=== PATIENT | male | born 1980 | race Caucasian/White ===

== ENCOUNTER 2017-01-13 06:54 | Inpatient (IN) | payer MEDICAID ==
[~2017-01-13] VITALS: Ht 160 cm; Wt 72.7 kg
[~2017-01-13 06:54] MED LIST: ASEN10TA8 SL; ASPI-1182 PO; DOCU250C91 PO; LISI-660 PO; METF500T4 PO; SIMV-261 PO; Trazodone Hcl PO
[2017-01-13] MEDS ORDERED: ZOLPIDEM TARTRATE 10 MG TABLET PO PRN (08:45)
[2017-01-13 09:10] VITALS: BP 102/65
[2017-01-13 09:55] LABS: GLUCOSE COMMENT 1 Doctor Notified; GLUCOSE,POINT OF CARE 351 MG/DL (70-110)
[2017-01-13] MEDS ORDERED: INSULIN ASPART 100 UNITS/ML SQ ONE (10:00)
[2017-01-13 10:53] VITALS: BP 121/54
[2017-01-13] MEDS ORDERED: INFLUENZA VIRUS VACCINE QVS 2017-18 (3YR+)/PF 60 MCG/0.5 ML SYRINGE IM ONE (11:00)
[2017-01-13] MEDS ORDERED: PNEUMOCOCCAL VACCINE POLYVALENT 0.5 ML VIAL [PPSV23] IM ONE (11:00)
[2017-01-13 11:20] LABS: GLUCOSE COMMENT 1 Doctor Notified; GLUCOSE COMMENT 2 Repeated; GLUCOSE,POINT OF CARE 280 MG/DL (70-110)
[2017-01-13] MEDS: DOCUSATE SODIUM 250 MG CAPSULE PO SCH (17:00)
[2017-01-13] MEDS: MetFORMIN HCL 500 MG TABLET PO SCH (17:00)
[2017-01-13 17:34] VITALS: BP 109/61
[2017-01-13 17:36] LABS: GLUCOSE COMMENT 1 Doctor Notified; GLUCOSE,POINT OF CARE 307 MG/DL (70-110)
[2017-01-13] MEDS ORDERED: IBUPROFEN 600 MG TABLET PO PRN (18:45)
[2017-01-13] MEDS ORDERED: GLUCAGON,HUMAN RECOMBINANT 1 MG VIAL IM PRN (19:15)
[2017-01-13] MEDS: ASENAPINE 5 MG SUBLINGUAL TABLET SL SCH (20:11)
[2017-01-13] MEDS: INSULIN ASPART 100 UNITS/ML SQ PRN (20:17)
[2017-01-13 20:37] VITALS: BP 112/68
[2017-01-13 21:20] LABS: GLUCOSE,POINT OF CARE 301 MG/DL (70-110)
[2017-01-14 04:35] VITALS: BP 125/88
[2017-01-14] MEDS: INSULIN ASPART 100 UNITS/ML SQ PRN ×4 (06:51→20:05)
[2017-01-14 06:57] LABS: GLUCOSE,POINT OF CARE 343 MG/DL (70-110)
[2017-01-14] MEDS: MetFORMIN HCL 500 MG TABLET PO SCH (07:00)
[2017-01-14 08:15] LABS: BASOPHILS % (AUTO) 0.6 % (0.0-2.0); EOSINOPHILS % (AUTO) 5.1 % (1.0-6.0); HEMATOCRIT 45.5 % (41-53); HEMOGLOBIN 15.7 g/dL (13.5-17.5); LYMPHOCYTES # (AUTO) 2.1 K/uL (1.0-4.8); LYMPHOCYTES % (AUTO) 36.1 % (22.0-44.0); MEAN CORPUSCULAR HEMOGLOBIN 30.6 pg (26.0-34.0); MEAN CORPUSCULAR HGB CONC 34.5 G/dL (31.0-37.0); MEAN CORPUSCULAR VOLUME 89 fL (80-100); MONOCYTES # (AUTO) 0.4 K/uL (0.1-1.0); MONOCYTES % (AUTO) 7.4 % (2.0-9.0); NEUTROPHILS % (AUTO) 50.8 % (40.0-70.0); PLATELET COUNT (AUTO) 188 K/uL (150-450); RED BLOOD CELL COUNT(AUTO) 5.13 MIL/uL (4.50-5.90); RED CELL DISTRIBUTION WIDTH 12.3 % (11.5-14.5); WHITE BLOOD COUNT (AUTO) 5.9 K/uL (4.5-11.0)
[2017-01-14 08:20] LABS: HEMOGLOBIN A1C 7.3 % (4.5-6.2)
[2017-01-14] MEDS ORDERED: BENZOCAINE/MENTHOL LOZENGE MM PRN (08:30)
[2017-01-14] MEDS ORDERED: ONDANSETRON HCL 4 MG TABLET PO PRN (08:30)
[2017-01-14] MEDS ORDERED: MAGNESIUM HYDROXIDE SUSPENSION 30 ML UDCUP PO PRN (08:30)
[2017-01-14] MEDS ORDERED: BACITRACIN 28.4 GM OINTMENT TP PRN (08:30)
[2017-01-14] MEDS ORDERED: LOPERAMIDE HCL 2 MG CAPSULE PO PRN (08:30)
[2017-01-14] MEDS ORDERED: MAG HYDROX/AL HYDROX/SIMETH ES 30 ML SUSPENSION UDCUP PO PRN (08:30)
[2017-01-14] MEDS ORDERED: ACETAMINOPHEN 325 MG TABLET PO PRN (08:30)
[2017-01-14] MEDS ORDERED: CloNIDine HCL 0.1 MG TABLET PO PRN (08:30)
[2017-01-14] MEDS ORDERED: ALBUTEROL SULFATE HFA 90 MCG/PUFF 8 GM INHALER IH PRN (08:30)
[2017-01-14] MEDS ORDERED: PETROLATUM,WHITE 71 GM JELLY TP PRN (08:30)
[2017-01-14 08:42] LABS: ALANINE AMINOTRANSFERASE 21 U/L (12-78); ALBUMIN 3.6 g/dL (3.4-5.0); ANION GAP 6 mmol/L (8-16); ASPARTATE AMINOTRANSFERASE 7 U/L (15-37); BILIRUBIN,TOTAL 0.7 mg/dL (0.1-1.0); CALCIUM, TOTAL 9.3 mg/dL (8.8-10.5); CARBON DIOXIDE 29 mmol/L (22-29); CHLORIDE 102 mmol/L (98-107); CHOL/HDL RATIO 2.4 (4.2-7.3); CREATININE 0.86 mg/dL (0.60-1.30); GLOMERULAR FILTR. RATE CALC > 60 mL/min (>60); POTASSIUM 4.4 mmol/L (3.5-5.1); SODIUM SERUM 137 mmol/L (136-145); THYROID STIMULATING HORMONE 0.82 uIU/mL (0.36-3.74); TOTAL PROTEIN, SERUM 6.3 g/dL (6.4-8.2); UREA NITROGEN, BLOOD 14 mg/dL (7-18)
[2017-01-14 08:56] VITALS: BP 123/66
[2017-01-14 08:59] LABS: ADD UA MICROSCOPIC YES; APPEARANCE,URINE CLEAR (CLEAR); GLUCOSE, URINE (UA) 500 mg/dL (NEGATIVE); KETONES,URINE 15 mg/dL (NEGATIVE); LEUKOCYTE ESTERASE ,URINE NEGATIVE (NEGATIVE); OCCULT BLOOD,URINE NEGATIVE (NEGATIVE); PROTEIN,URINE NEGATIVE (NEGATIVE)
[2017-01-14 09:14] LABS: RBC,URINE 0-2 /HPF (0-2); SQUAMOUS EPITHELIAL CELL,UR Rare /LPF (None Seen); WBC,URINE 0-2 /HPF (0-5)
[2017-01-14] MEDS: OMEPRAZOLE 20 MG CAPSULE PO SCH (09:53)
[2017-01-14] MEDS: DOCUSATE SODIUM 250 MG CAPSULE PO SCH ×2 (09:53→16:05)
[2017-01-14] MEDS: ASPIRIN 81 MG EC TABLET PO SCH (09:54)
[2017-01-14] MEDS: LISINOPRIL 5 MG TABLET PO SCH (09:54)
[2017-01-14] MEDS: SIMVASTATIN 40 MG TABLET PO SCH (09:54)
[2017-01-14] MEDS: INSULIN ASPART 100 UNITS/ML SQ SCH ×2 (11:00→16:06)
[2017-01-14 11:03] LABS: GLUCOSE COMMENT 1 Received Meds; GLUCOSE,POINT OF CARE 303 MG/DL (70-110)
[2017-01-14 16:22] VITALS: BP 109/64
[2017-01-14 16:23] LABS: GLUCOSE,POINT OF CARE 184 MG/DL (70-110)
[2017-01-14] MEDS: BIMATOPROST 0.01% 2.5 ML OPHTHALMIC SOLUTION OU SCH (20:03)
[2017-01-14] MEDS: ASENAPINE 5 MG SUBLINGUAL TABLET SL SCH (20:03)
[2017-01-14] MEDS: INSULIN DETEMIR 100 UNITS/ML SQ SCH (20:04)
[2017-01-14 20:23] LABS: GLUCOSE COMMENT 1 Received Meds; GLUCOSE,POINT OF CARE 381 MG/DL (70-110)
[2017-01-15 02:00] VITALS: BP 107/64
[2017-01-15] MEDS: INSULIN ASPART 100 UNITS/ML SQ SCH ×3 (06:39→17:11)
[2017-01-15] MEDS: ASPIRIN 81 MG EC TABLET PO SCH (08:33)
[2017-01-15] MEDS: OMEPRAZOLE 20 MG CAPSULE PO SCH (08:33)
[2017-01-15] MEDS: DOCUSATE SODIUM 250 MG CAPSULE PO SCH ×2 (08:33→17:07)
[2017-01-15] MEDS: LISINOPRIL 5 MG TABLET PO SCH (08:33)
[2017-01-15] MEDS: SIMVASTATIN 40 MG TABLET PO SCH (08:34)
[2017-01-15] MEDS: IBUPROFEN 600 MG TABLET PO PRN (08:35)
[2017-01-15] MEDS: BRINZOLAMIDE 1% 10 ML OPHTHALMIC SUSPENSION OU SCH (08:36)
[2017-01-15 08:37] VITALS: BP 126/76
[2017-01-15] MEDS ORDERED: GuaiFENesin [SUGAR-FREE] 200 MG/10 ML SOLUTION UDCUP PO PRN (08:45)
[2017-01-15] MEDS: INSULIN ASPART 100 UNITS/ML SQ PRN ×3 (11:04→21:16)
[2017-01-15 12:08] LABS: GLUCOSE,POINT OF CARE 165 MG/DL (70-110)
[2017-01-15 12:08] LABS: GLUCOSE,POINT OF CARE 208 MG/DL (70-110)
[2017-01-15 16:14] VITALS: BP 109/65
[2017-01-15] MEDS: ASENAPINE 5 MG SUBLINGUAL TABLET SL SCH (21:13)
[2017-01-15] MEDS: BIMATOPROST 0.01% 2.5 ML OPHTHALMIC SOLUTION OU SCH (21:15)
[2017-01-15] MEDS: INSULIN DETEMIR 100 UNITS/ML SQ SCH (21:16)
[2017-01-15 21:48] LABS: GLUCOSE,POINT OF CARE 277 MG/DL (70-110)
[2017-01-15 21:48] LABS: GLUCOSE COMMENT 1 Received Meds; GLUCOSE,POINT OF CARE 221 MG/DL (70-110)
[2017-01-16 00:46] VITALS: BP 101/63
[2017-01-16] MEDS: INSULIN ASPART 100 UNITS/ML SQ SCH ×3 (06:25→16:43)
[2017-01-16] MEDS: INSULIN ASPART 100 UNITS/ML SQ PRN ×4 (06:26→21:04)
[2017-01-16] MEDS: OMEPRAZOLE 20 MG CAPSULE PO SCH (08:28)
[2017-01-16] MEDS: DOCUSATE SODIUM 250 MG CAPSULE PO SCH ×2 (08:28→16:38)
[2017-01-16] MEDS: LISINOPRIL 5 MG TABLET PO SCH (08:28)
[2017-01-16] MEDS: ASPIRIN 81 MG EC TABLET PO SCH (08:28)
[2017-01-16] MEDS: SIMVASTATIN 40 MG TABLET PO SCH (08:29)
[2017-01-16] MEDS: MULTIVITAMINS WITH MINERALS, THERAPEUTIC TABLET PO SCH (08:29)
[2017-01-16] MEDS: BRINZOLAMIDE 1% 10 ML OPHTHALMIC SUSPENSION OU SCH (08:30)
[2017-01-16 08:37] VITALS: BP 117/77
[2017-01-16 10:57] LABS: GLUCOSE,POINT OF CARE 170 MG/DL (70-110)
[2017-01-16 10:57] LABS: GLUCOSE,POINT OF CARE 200 MG/DL (70-110)
[2017-01-16] MEDS: IBUPROFEN 600 MG TABLET PO PRN (12:44)
[2017-01-16 16:19] VITALS: BP 127/86
[2017-01-16 16:42] LABS: GLUCOSE,POINT OF CARE 267 MG/DL (70-110)
[2017-01-16] MEDS: ASENAPINE 10 MG SUBLINGUAL TABLET SL SCH (20:37)
[2017-01-16] MEDS: BIMATOPROST 0.01% 2.5 ML OPHTHALMIC SOLUTION OU SCH (20:38)
[2017-01-16 20:39] LABS: GLUCOSE,POINT OF CARE 150 MG/DL (70-110)
[2017-01-16] MEDS: INSULIN DETEMIR 100 UNITS/ML SQ SCH (21:04)
[2017-01-17 00:16] VITALS: BP 113/72
[2017-01-17] MEDS: INSULIN ASPART 100 UNITS/ML SQ SCH ×3 (06:26→16:40)
[2017-01-17] MEDS: INSULIN ASPART 100 UNITS/ML SQ PRN ×4 (06:28→21:02)
[2017-01-17 08:13] VITALS: BP 124/80
[2017-01-17] MEDS: ASPIRIN 81 MG EC TABLET PO SCH (08:17)
[2017-01-17] MEDS: MULTIVITAMINS WITH MINERALS, THERAPEUTIC TABLET PO SCH (08:17)
[2017-01-17] MEDS: SIMVASTATIN 40 MG TABLET PO SCH (08:17)
[2017-01-17] MEDS: LISINOPRIL 5 MG TABLET PO SCH (08:17)
[2017-01-17] MEDS: BRINZOLAMIDE 1% 10 ML OPHTHALMIC SUSPENSION OU SCH (08:17)
[2017-01-17] MEDS: OMEPRAZOLE 20 MG CAPSULE PO SCH (08:17)
[2017-01-17] MEDS: DOCUSATE SODIUM 250 MG CAPSULE PO SCH ×2 (08:17→16:03)
[2017-01-17 09:13] LABS: GLUCOSE,POINT OF CARE 183 MG/DL (70-110)
[2017-01-17 10:58] LABS: GLUCOSE,POINT OF CARE 216 MG/DL (70-110)
[2017-01-17] MEDS ORDERED: LOPERAMIDE HCL 2 MG CAPSULE PO PRN (13:15)
[2017-01-17] MEDS ORDERED: GuaiFENesin/D-METHORPHAN [SUGAR-FREE] 200-20MG/10 ML SYRUP UDCUP PO PRN (13:15)
[2017-01-17] MEDS ORDERED: HydrOXYzine PAMOATE 50 MG CAPSULE PO PRN (13:15)
[2017-01-17] MEDS ORDERED: ASEN10TA8 SL (15:36)
[2017-01-17] MEDS: THIAMINE HCL 100 MG TABLET PO SCH (16:03)
[2017-01-17 16:12] LABS: GLUCOSE COMMENT 1 Received Meds; GLUCOSE,POINT OF CARE 242 MG/DL (70-110)
[2017-01-17 16:14] VITALS: BP 123/75
[2017-01-17] MEDS: BIMATOPROST 0.01% 2.5 ML OPHTHALMIC SOLUTION OU SCH (20:24)
[2017-01-17] MEDS: ASENAPINE 10 MG SUBLINGUAL TABLET SL SCH (20:24)
[2017-01-17] MEDS: LORazepam 2 MG TABLET PO PRN (20:24)
[2017-01-17 20:42] LABS: GLUCOSE COMMENT 1 Received Meds; GLUCOSE,POINT OF CARE 232 MG/DL (70-110)
[2017-01-17] MEDS: INSULIN DETEMIR 100 UNITS/ML SQ SCH (21:02)
[2017-01-18] MEDS: INSULIN ASPART 100 UNITS/ML SQ SCH ×2 (06:48→11:26)
[2017-01-18] MEDS: INSULIN ASPART 100 UNITS/ML SQ PRN ×2 (06:49→11:26)
[2017-01-18] MEDS: SIMVASTATIN 40 MG TABLET PO SCH (08:18)
[2017-01-18] MEDS: DOCUSATE SODIUM 250 MG CAPSULE PO SCH (08:18)
[2017-01-18] MEDS: LISINOPRIL 5 MG TABLET PO SCH (08:18)
[2017-01-18] MEDS: BRINZOLAMIDE 1% 10 ML OPHTHALMIC SUSPENSION OU SCH (08:18)
[2017-01-18] MEDS: OMEPRAZOLE 20 MG CAPSULE PO SCH (08:19)
[2017-01-18] MEDS: LORazepam 2 MG TABLET PO PRN (08:19)
[2017-01-18] MEDS: ASPIRIN 81 MG EC TABLET PO SCH (08:19)
[2017-01-18] MEDS: THIAMINE HCL 100 MG TABLET PO SCH (08:19)
[2017-01-18 08:37] VITALS: BP 138/87
[2017-01-18] MEDS ORDERED: FOLIC ACID 1 MG TABLET PO SCH (09:00)
[2017-01-18] MEDS ORDERED: MULTIVITAMINS WITH MINERALS, THERAPEUTIC TABLET PO SCH (09:00)
[2017-01-18] MEDS ORDERED: FOLI1 PO (10:21)
[2017-01-18] MEDS ORDERED: INSNOV SQ (10:21)
[2017-01-18] MEDS ORDERED: MV-M1TAB2 PO (10:21)
[2017-01-18] MEDS ORDERED: BIMA12.5OS OU (10:21)
[2017-01-18] MEDS ORDERED: INSU100V12 SQ (10:21)
[2017-01-18] MEDS ORDERED: THIA100 PO (10:21)
[2017-01-18] MEDS ORDERED: OMEP20 PO (10:21)
[2017-01-18] MEDS ORDERED: BRINOS OP (10:21)
[2017-01-18 10:57] LABS: GLUCOSE,POINT OF CARE 172 MG/DL (70-110)
[2017-01-18 14:27] LABS: GLUCOSE,POINT OF CARE 80 MG/DL (70-110)
== END 2017-01-18 14:51 | disposition home or self-care (01) | DRG 750 ==
LOC: B2S 08:00 → EDSTATUS 08:29
PROVIDERS: ADMIT Psychiatry & Neurology Psychiatry; ATTEND Psychiatry & Neurology Psychiatry
DX: F20.0 Paranoid schizophrenia (principal); M41.9 Scoliosis, unspecified; I10 Essential (primary) hypertension; E10.9 Type 1 diabetes mellitus without complications; F84.0 Autistic disorder; E78.5 Hyperlipidemia, unspecified; F39 Unspecified mood [affective] disorder; G47.00 Insomnia, unspecified; J45.909 Unspecified asthma, uncomplicated; K21.9 Gastro-esophageal reflux disease without esophagitis; K59.00 Constipation, unspecified; Z59.0 Homelessness; Z79.4 Long term (current) use of insulin; Z91.14 Patient's other noncompliance with medication regimen; Z72.89 Other problems related to lifestyle; Z71.41 Alcohol abuse counseling and surveillance of alcoholic; Z88.2 Allergy status to sulfonamides; Z88.1 Allergy status to other antibiotic agents; Z88.8 Allergy status to other drugs, medicaments and biological substances; Z28.21 Immunization not carried out because of patient refusal
CPT/HCPCS: 80307; 82962; 83036; 84439; 84443; 87081; J1815

== ENCOUNTER 2017-04-27 12:18 | Inpatient (IN) | payer MEDICAID ==
[~2017-04-27] VITALS: Ht 160 cm; Wt 75.7 kg
[~2017-04-27 12:18] MED LIST changes: +BIMA12.5OS OU; +BRINOS OP; +FOLI1 PO; +INSNOV SQ; +INSU100V12 SQ; -METF500T4 PO; +MV-M1TAB2 PO; +OMEP20 PO; +THIA100 PO; -Trazodone Hcl PO
[2017-04-27 12:24] VITALS: BP 120/75
[2017-04-27] MEDS ORDERED: QUEtiapine FUMARATE 100 MG TABLET PO PRN (13:00)
[2017-04-27] MEDS ORDERED: MAG HYDROX/AL HYDROX/SIMETH ES 30 ML SUSPENSION UDCUP PO PRN (13:00)
[2017-04-27] MEDS ORDERED: LOPERAMIDE HCL 2 MG CAPSULE PO PRN (13:00)
[2017-04-27] MEDS ORDERED: GuaiFENesin/D-METHORPHAN [SUGAR-FREE] 200-20MG/10 ML SYRUP UDCUP PO PRN (13:00)
[2017-04-27] MEDS ORDERED: TUBERCULIN, PURIFIED PROTEIN DERIVATIVE 5 TU/0.1 ML SYG ID ONE (13:00)
[2017-04-27] MEDS ORDERED: HydrOXYzine PAMOATE 50 MG CAPSULE PO PRN (13:00)
[2017-04-27] MEDS ORDERED: PROMETHAZINE HCL 25 MG TABLET PO PRN (13:00)
[2017-04-27] MEDS ORDERED: ZOLPIDEM TARTRATE 10 MG TABLET PO PRN (13:00)
[2017-04-27] MEDS ORDERED: MAGNESIUM HYDROXIDE SUSPENSION 30 ML UDCUP PO PRN (13:00)
[2017-04-27] MEDS ORDERED: INFLUENZA VIRUS VACCINE QVS 2017-18 (3YR+)/PF 60 MCG/0.5 ML SYRINGE IM ONE (14:30)
[2017-04-27 14:41] LABS: GLUCOMETER DEV NAME(LOC) BV3N5; GLUCOSE,POINT OF CARE 298 MG/DL (70-110)
[2017-04-27 16:00] VITALS: BP 110/69
[2017-04-27] MEDS: THIAMINE HCL 100 MG TABLET PO SCH (17:00)
[2017-04-27] MEDS ORDERED: GLUCAGON,HUMAN RECOMBINANT 1 MG VIAL IM PRN (17:15)
[2017-04-27] MEDS: LORazepam 2 MG TABLET PO PRN (17:26)
[2017-04-27] MEDS: INSULIN ASPART 100 UNITS/ML SQ PRN ×2 (17:30→21:09)
[2017-04-27 18:08] LABS: GLUCOMETER DEV NAME(LOC) BV3N5; GLUCOSE,POINT OF CARE 334 MG/DL (70-110)
[2017-04-27] MEDS: ASENAPINE 10 MG SUBLINGUAL TABLET SL SCH (21:09)
[2017-04-27 21:27] LABS: GLUCOMETER DEV NAME(LOC) BV3N5; GLUCOSE,POINT OF CARE 253 MG/DL (70-110)
[2017-04-28 06:38] LABS: GLUCOMETER DEV NAME(LOC) BV3N5; GLUCOSE,POINT OF CARE 187 MG/DL (70-110)
[2017-04-28] MEDS: INSULIN ASPART 100 UNITS/ML SQ PRN ×4 (06:40→20:33)
[2017-04-28 06:41] VITALS: BP 107/68
[2017-04-28 08:14] LABS: BASOPHILS % (AUTO) 0.6 % (0.0-2.0); EOSINOPHILS % (AUTO) 4.1 % (1.0-6.0); HEMATOCRIT 48.4 % (41-53); HEMOGLOBIN 16.6 g/dL (13.5-17.5); LYMPHOCYTES # (AUTO) 2.1 K/uL (1.0-4.8); LYMPHOCYTES % (AUTO) 26.9 % (22.0-44.0); MEAN CORPUSCULAR HEMOGLOBIN 30.1 pg (26.0-34.0); MEAN CORPUSCULAR HGB CONC 34.4 G/dL (31.0-37.0); MEAN CORPUSCULAR VOLUME 87 fL (80-100); MONOCYTES # (AUTO) 0.6 K/uL (0.1-1.0); MONOCYTES % (AUTO) 7.6 % (2.0-9.0); NEUTROPHILS # (AUTO) 4.7 K/uL (1.8-7.7); NEUTROPHILS % (AUTO) 60.8 % (40.0-70.0); PLATELET COUNT (AUTO) 181 K/uL (150-450); RED BLOOD CELL COUNT(AUTO) 5.54 MIL/uL (4.50-5.90); RED CELL DISTRIBUTION WIDTH 12.7 % (11.5-14.5)
[2017-04-28 08:36] LABS: ALANINE AMINOTRANSFERASE 21 U/L (12-78); ALBUMIN 3.4 g/dL (3.4-5.0); ALKALINE PHOSPHATASE 94 U/L (46-116); ANION GAP 7 mmol/L (8-16); ASPARTATE AMINOTRANSFERASE 12 U/L (15-37); BILIRUBIN,TOTAL 0.5 mg/dL (0.1-1.0); CALCIUM, TOTAL 8.4 mg/dL (8.8-10.5); CARBON DIOXIDE 29 mmol/L (22-29); CHLORIDE 105 mmol/L (98-107); CHOL/HDL RATIO 2.3 (4.2-7.3); CHOLESTEROL 187 mg/dL (131-200); CREATININE 0.76 mg/dL (0.60-1.30); FREE T4 (FREE THYROXINE) 0.79 ng/dL (0.76-1.46); GLOMERULAR FILTR. RATE CALC > 60 mL/min (>60); GLUCOSE,RANDOM 165 mg/dL (70-110); HDL CHOLESTEROL 80 mg/dL (40-60); LDL CHOL (CALC.) 90 mg/dL (0-130); POTASSIUM 3.9 mmol/L (3.5-5.1); SODIUM SERUM 141 mmol/L (136-145); THYROID STIMULATING HORMONE 0.81 uIU/mL (0.36-3.74); TOTAL PROTEIN, SERUM 6.6 g/dL (6.4-8.2); TRIGLYCERIDES 87 mg/dL (15-150); UREA NITROGEN, BLOOD 12 mg/dL (7-18)
[2017-04-28 08:53] LABS: HEMOGLOBIN A1C 6.7 % (4.5-6.2)
[2017-04-28 09:00] VITALS: BP 112/64
[2017-04-28] MEDS: BRINZOLAMIDE 1% 10 ML OPHTHALMIC SUSPENSION OU SCH (09:00)
[2017-04-28] MEDS: THIAMINE HCL 100 MG TABLET PO SCH ×2 (09:06→16:29)
[2017-04-28] MEDS: FOLIC ACID 1 MG TABLET PO SCH (09:06)
[2017-04-28] MEDS: MULTIVITAMINS WITH MINERALS, THERAPEUTIC TABLET PO SCH (09:06)
[2017-04-28 12:12] LABS: GLUCOMETER DEV NAME(LOC) BV3N5; GLUCOSE,POINT OF CARE 311 MG/DL (70-110)
[2017-04-28] MEDS ORDERED: GABAPENTIN 300 MG CAPSULE PO PRN (15:00)
[2017-04-28 16:26] VITALS: BP 113/67
[2017-04-28] MEDS: LORazepam 2 MG TABLET PO PRN (16:29)
[2017-04-28 16:47] LABS: GLUCOMETER DEV NAME(LOC) BV3N5; GLUCOSE,POINT OF CARE 359 MG/DL (70-110)
[2017-04-28] MEDS: ACETAMINOPHEN 325 MG TABLET PO PRN (17:18)
[2017-04-28] MEDS: ASENAPINE 10 MG SUBLINGUAL TABLET SL SCH (20:32)
[2017-04-28] MEDS: BIMATOPROST 0.01% 2.5 ML OPHTHALMIC SOLUTION OU SCH (20:34)
[2017-04-28 21:07] LABS: GLUCOMETER DEV NAME(LOC) BV3N5; GLUCOSE,POINT OF CARE 360 MG/DL (70-110)
[2017-04-28] MEDS: INSULIN DETEMIR 100 UNITS/ML SQ SCH (21:33)
[2017-04-29 06:28] LABS: GLUCOMETER DEV NAME(LOC) BV3N5; GLUCOSE,POINT OF CARE 98 MG/DL (70-110)
[2017-04-29] MEDS: MetFORMIN HCL 500 MG TABLET PO SCH ×2 (06:29→17:00)
[2017-04-29 06:44] VITALS: BP 112/77
[2017-04-29 08:06] VITALS: BP 144/80
[2017-04-29] MEDS: FOLIC ACID 1 MG TABLET PO SCH (08:42)
[2017-04-29] MEDS: THIAMINE HCL 100 MG TABLET PO SCH ×2 (08:42→16:32)
[2017-04-29] MEDS: MULTIVITAMINS WITH MINERALS, THERAPEUTIC TABLET PO SCH (08:42)
[2017-04-29] MEDS: BRINZOLAMIDE 1% 10 ML OPHTHALMIC SUSPENSION OU SCH (08:42)
[2017-04-29] MEDS: OMEGA-3/DHA/EPA/FISH OIL 1,000 MG CAPSULE PO SCH (08:42)
[2017-04-29] MEDS: INSULIN ASPART 100 UNITS/ML SQ PRN (11:37)
[2017-04-29 11:58] LABS: GLUCOMETER DEV NAME(LOC) BV3N5; GLUCOSE,POINT OF CARE 396 MG/DL (70-110)
[2017-04-29 16:00] VITALS: BP 141/89
[2017-04-29 16:43] LABS: GLUCOMETER DEV NAME(LOC) BV3N5; GLUCOSE,POINT OF CARE 133 MG/DL (70-110)
[2017-04-29] MEDS ORDERED: INSULIN ASPART 100 UNITS/ML SQ ONE (21:00)
[2017-04-29 21:07] LABS: GLUCOMETER DEV NAME(LOC) BV3N5; GLUCOSE,POINT OF CARE 407 MG/DL (70-110)
[2017-04-29] MEDS: INSULIN DETEMIR 100 UNITS/ML SQ SCH (21:39)
[2017-04-29] MEDS: BIMATOPROST 0.01% 2.5 ML OPHTHALMIC SOLUTION OU SCH (21:40)
[2017-04-29 21:42] LABS: GLUCOMETER DEV NAME(LOC) BV3N5; GLUCOSE,POINT OF CARE 312 MG/DL (70-110)
[2017-04-29] MEDS: ASENAPINE 5 MG SUBLINGUAL TABLET SL SCH (21:44)
[2017-04-30 05:08] VITALS: BP 131/78
[2017-04-30] MEDS: MetFORMIN HCL 500 MG TABLET PO SCH ×2 (06:36→17:00)
[2017-04-30 06:44] LABS: GLUCOMETER DEV NAME(LOC) BV3N5; GLUCOSE,POINT OF CARE 75 MG/DL (70-110)
[2017-04-30 08:08] VITALS: BP 115/68
[2017-04-30] MEDS: BRINZOLAMIDE 1% 10 ML OPHTHALMIC SUSPENSION OU SCH (08:19)
[2017-04-30] MEDS: OMEGA-3/DHA/EPA/FISH OIL 1,000 MG CAPSULE PO SCH (08:19)
[2017-04-30] MEDS: MULTIVITAMINS WITH MINERALS, THERAPEUTIC TABLET PO SCH (08:19)
[2017-04-30] MEDS: THIAMINE HCL 100 MG TABLET PO SCH ×2 (08:19→16:20)
[2017-04-30] MEDS: FOLIC ACID 1 MG TABLET PO SCH (08:19)
[2017-04-30] MEDS: LISINOPRIL 10 MG TABLET PO SCH (10:59)
[2017-04-30] MEDS: INSULIN ASPART 100 UNITS/ML SQ PRN ×3 (11:37→21:02)
[2017-04-30 16:04] LABS: GLUCOMETER DEV NAME(LOC) BV3N5; GLUCOSE,POINT OF CARE 355 MG/DL (70-110)
[2017-04-30 16:21] LABS: GLUCOMETER DEV NAME(LOC) BV3N5; GLUCOSE,POINT OF CARE 230 MG/DL (70-110)
[2017-04-30 16:41] VITALS: BP 120/82
[2017-04-30 16:52] LABS: GLUCOMETER DEV NAME(LOC) BV2N3; GLUCOSE,POINT OF CARE 208 MG/DL (70-110)
[2017-04-30] MEDS: BIMATOPROST 0.01% 2.5 ML OPHTHALMIC SOLUTION OU SCH (20:01)
[2017-04-30] MEDS: ASENAPINE 5 MG SUBLINGUAL TABLET SL SCH (20:02)
[2017-04-30] MEDS: INSULIN DETEMIR 100 UNITS/ML SQ SCH (20:02)
[2017-04-30] MEDS: SIMVASTATIN 40 MG TABLET PO SCH (20:02)
[2017-04-30 20:08] LABS: GLUCOMETER DEV NAME(LOC) BV2N3; GLUCOSE,POINT OF CARE 313 MG/DL (70-110)
[2017-05-01 04:08] VITALS: BP 117/85
[2017-05-01] MEDS: LORazepam 2 MG TABLET PO PRN ×2 (04:09→21:45)
[2017-05-01 06:22] LABS: GLUCOMETER DEV NAME(LOC) BV2N3; GLUCOSE,POINT OF CARE 144 MG/DL (70-110)
[2017-05-01] MEDS: MetFORMIN HCL 500 MG TABLET PO SCH ×2 (06:43→17:00)
[2017-05-01] MEDS: LACTOBACILLUS ACIDOPHILUS/BULGARICUS TABLET PO SCH (07:00)
[2017-05-01] MEDS: INSULIN ASPART 100 UNITS/ML SQ PRN ×3 (07:08→21:00)
[2017-05-01 08:25] VITALS: BP 123/77
[2017-05-01] MEDS: OMEGA-3/DHA/EPA/FISH OIL 1,000 MG CAPSULE PO SCH (08:26)
[2017-05-01] MEDS: MULTIVITAMINS WITH MINERALS, THERAPEUTIC TABLET PO SCH (08:27)
[2017-05-01] MEDS: THIAMINE HCL 100 MG TABLET PO SCH ×2 (08:27→16:02)
[2017-05-01] MEDS: FOLIC ACID 1 MG TABLET PO SCH (08:27)
[2017-05-01] MEDS: LISINOPRIL 10 MG TABLET PO SCH (08:27)
[2017-05-01] MEDS: BRINZOLAMIDE 1% 10 ML OPHTHALMIC SUSPENSION OU SCH (08:28)
[2017-05-01 11:12] LABS: GLUCOMETER DEV NAME(LOC) BV2N3; GLUCOSE,POINT OF CARE 119 MG/DL (70-110)
[2017-05-01 16:04] VITALS: BP 118/80
[2017-05-01] MEDS: ACETAMINOPHEN 325 MG TABLET PO PRN (16:04)
[2017-05-01 16:22] LABS: GLUCOMETER DEV NAME(LOC) BV2N3; GLUCOSE,POINT OF CARE 273 MG/DL (70-110)
[2017-05-01 16:43] VITALS: BP 110/64
[2017-05-01] MEDS: SIMVASTATIN 40 MG TABLET PO SCH (20:34)
[2017-05-01] MEDS: BIMATOPROST 0.01% 2.5 ML OPHTHALMIC SOLUTION OU SCH (20:34)
[2017-05-01] MEDS: ASENAPINE 5 MG SUBLINGUAL TABLET SL SCH (20:34)
[2017-05-01] MEDS: INSULIN DETEMIR 100 UNITS/ML SQ SCH (20:47)
[2017-05-01 21:07] LABS: GLUCOMETER DEV NAME(LOC) BV2N3; GLUCOSE,POINT OF CARE 314 MG/DL (70-110)
[2017-05-02 02:15] VITALS: BP 109/71
[2017-05-02 06:23] LABS: GLUCOMETER DEV NAME(LOC) BV2N3; GLUCOSE,POINT OF CARE 131 MG/DL (70-110)
[2017-05-02] MEDS: MetFORMIN HCL 500 MG TABLET PO SCH ×2 (06:51→17:00)
[2017-05-02] MEDS: LACTOBACILLUS ACIDOPHILUS/BULGARICUS TABLET PO SCH (06:52)
[2017-05-02 08:10] VITALS: BP 111/71
[2017-05-02] MEDS: BRINZOLAMIDE 1% 10 ML OPHTHALMIC SUSPENSION OU SCH (08:12)
[2017-05-02] MEDS: THIAMINE HCL 100 MG TABLET PO SCH ×2 (08:13→16:21)
[2017-05-02] MEDS: FOLIC ACID 1 MG TABLET PO SCH (08:13)
[2017-05-02] MEDS: OMEGA-3/DHA/EPA/FISH OIL 1,000 MG CAPSULE PO SCH (08:13)
[2017-05-02] MEDS: LISINOPRIL 10 MG TABLET PO SCH (08:13)
[2017-05-02] MEDS: MULTIVITAMINS WITH MINERALS, THERAPEUTIC TABLET PO SCH (08:14)
[2017-05-02] MEDS: INSULIN ASPART 100 UNITS/ML SQ PRN ×3 (11:14→21:53)
[2017-05-02 11:17] LABS: GLUCOMETER DEV NAME(LOC) BV2N3; GLUCOSE,POINT OF CARE 247 MG/DL (70-110)
[2017-05-02] MEDS ORDERED: ASEN5TAB6 SL (15:06)
[2017-05-02] MEDS ORDERED: OMEG-135 PO (15:06)
[2017-05-02] MEDS: GlipiZIDE 10 MG TABLET PO SCH (16:30)
[2017-05-02 17:27] LABS: GLUCOMETER DEV NAME(LOC) BV2N3; GLUCOSE,POINT OF CARE 236 MG/DL (70-110)
[2017-05-02 17:27] LABS: GLUCOMETER DEV NAME(LOC) BV2N3; GLUCOSE,POINT OF CARE 98 MG/DL (70-110)
[2017-05-02 18:20] VITALS: BP 132/85
[2017-05-02] MEDS: BIMATOPROST 0.01% 2.5 ML OPHTHALMIC SOLUTION OU SCH (20:45)
[2017-05-02] MEDS: ASENAPINE 5 MG SUBLINGUAL TABLET SL SCH (20:45)
[2017-05-02] MEDS: INSULIN DETEMIR 100 UNITS/ML SQ SCH (20:48)
[2017-05-02] MEDS: SIMVASTATIN 40 MG TABLET PO SCH (20:48)
[2017-05-02 21:12] LABS: GLUCOMETER DEV NAME(LOC) BV2N3; GLUCOSE,POINT OF CARE 225 MG/DL (70-110)
[2017-05-03] MEDS: GlipiZIDE 10 MG TABLET PO SCH ×2 (05:59→06:25)
[2017-05-03 06:12] LABS: GLUCOMETER DEV NAME(LOC) BV2N3; GLUCOSE,POINT OF CARE 126 MG/DL (70-110)
[2017-05-03 06:16] VITALS: BP 110/70
[2017-05-03] MEDS: MetFORMIN HCL 500 MG TABLET PO SCH (06:31)
[2017-05-03] MEDS: LACTOBACILLUS ACIDOPHILUS/BULGARICUS TABLET PO SCH (06:49)
[2017-05-03 08:22] VITALS: BP 121/70
[2017-05-03] MEDS ORDERED: ASEN5TAB6 SL (08:25)
[2017-05-03] MEDS ORDERED: GLIP10 PO (08:25)
[2017-05-03] MEDS ORDERED: METF500T PO (08:25)
[2017-05-03] MEDS ORDERED: BRINOS OU (08:25)
[2017-05-03] MEDS ORDERED: SIMV40TA2 PO (08:25)
[2017-05-03] MEDS ORDERED: ACID1TAB8 PO (08:25)
[2017-05-03] MEDS ORDERED: LISI-661 PO (08:25)
[2017-05-03] MEDS ORDERED: OMEG-135 PO (08:25)
[2017-05-03] MEDS: OMEGA-3/DHA/EPA/FISH OIL 1,000 MG CAPSULE PO SCH (08:28)
[2017-05-03] MEDS: FOLIC ACID 1 MG TABLET PO SCH (08:28)
[2017-05-03] MEDS: MULTIVITAMINS WITH MINERALS, THERAPEUTIC TABLET PO SCH (08:28)
[2017-05-03] MEDS: THIAMINE HCL 100 MG TABLET PO SCH (08:28)
[2017-05-03] MEDS: LORazepam 2 MG TABLET PO PRN (08:28)
[2017-05-03] MEDS: LISINOPRIL 10 MG TABLET PO SCH (08:28)
[2017-05-03] MEDS: BRINZOLAMIDE 1% 10 ML OPHTHALMIC SUSPENSION OU SCH (08:29)
[2017-05-03 10:52] LABS: GLUCOMETER DEV NAME(LOC) BV2N3; GLUCOSE,POINT OF CARE 198 MG/DL (70-110)
[2017-05-03] MEDS: INSULIN ASPART 100 UNITS/ML SQ PRN (11:23)
[2017-05-03 14:08] LABS: GLUCOMETER DEV NAME(LOC) BV2N3; GLUCOSE,POINT OF CARE 339 MG/DL (70-110)
== END 2017-05-03 15:05 | disposition home or self-care (01) | DRG 750 ==
LOC: B3A 13:01 → B2S 04-30 13:08
PROVIDERS: ADMIT Psychiatry & Neurology Psychiatry; ATTEND Psychiatry & Neurology Psychiatry
DX: F20.0 Paranoid schizophrenia (principal); E10.65 Type 1 diabetes mellitus with hyperglycemia; I10 Essential (primary) hypertension; E78.5 Hyperlipidemia, unspecified; F17.200 Nicotine dependence, unspecified, uncomplicated; E10.319 Type 1 diabetes mellitus with unspecified diabetic retinopathy without macular edema; F41.9 Anxiety disorder, unspecified; F84.0 Autistic disorder; G47.00 Insomnia, unspecified; K21.9 Gastro-esophageal reflux disease without esophagitis; Z68.28 Body mass index [BMI] 28.0-28.9, adult; Z79.4 Long term (current) use of insulin; Z91.14 Patient's other noncompliance with medication regimen; Z91.19 Patient's noncompliance with other medical treatment and regimen; Z88.1 Allergy status to other antibiotic agents; Z88.2 Allergy status to sulfonamides; Z88.8 Allergy status to other drugs, medicaments and biological substances
CPT/HCPCS: 82962; 83036; 84439; 84443; 86592; 90471; J1815

== ENCOUNTER 2017-08-14 21:07 | Inpatient (IN) | payer MEDICAID ==
[~2017-08-14] VITALS: Ht 160 cm; Wt 77.1 kg
[~2017-08-14 21:07] MED LIST changes: +ACID1TAB8 PO; -ASEN10TA8 SL; +ASEN5TAB6 SL; -ASPI-1182 PO; -BRINOS OP; +BRINOS OU; -DOCU250C91 PO; -FOLI1 PO; +GLIP10 PO; -INSNOV SQ; -LISI-660 PO; +LISI-661 PO; +METF500T PO; -MV-M1TAB2 PO; +OMEG-135 PO; -OMEP20 PO; -SIMV-261 PO; +SIMV40TA2 PO; -THIA100 PO
[2017-08-14] MEDS ORDERED: LORazepam 2 MG TABLET PO PRN (21:15)
[2017-08-14 22:07] VITALS: BP 109/65
[2017-08-14] MEDS ORDERED: GLUCAGON,HUMAN RECOMBINANT 1 MG VIAL IM PRN (22:30)
[2017-08-14] MEDS: INSULIN LISPRO 100 UNITS/ML SQ PRN (23:00)
[2017-08-15 01:39] VITALS: BP 128/82
[2017-08-15 06:24] LABS: GLUCOMETER DEV NAME(LOC) BV3N5; GLUCOSE,POINT OF CARE 53 MG/DL (70-110)
[2017-08-15 06:38] LABS: GLUCOMETER DEV NAME(LOC) BV3N5; GLUCOSE,POINT OF CARE 88 MG/DL (70-110)
[2017-08-15 08:06] VITALS: BP 115/67
[2017-08-15 08:44] LABS: BASOPHILS % (AUTO) 0.4 % (0.0-2.0); EOSINOPHILS % (AUTO) 1.1 % (1.0-6.0); HEMATOCRIT 46.2 % (41-53); HEMOGLOBIN 15.9 g/dL (13.5-17.5); LYMPHOCYTES # (AUTO) 2.1 K/uL (1.0-4.8); LYMPHOCYTES % (AUTO) 19.2 % (22.0-44.0); MEAN CORPUSCULAR HEMOGLOBIN 30.1 pg (26.0-34.0); MEAN CORPUSCULAR HGB CONC 34.4 G/dL (31.0-37.0); MEAN CORPUSCULAR VOLUME 88 fL (80-100); MONOCYTES # (AUTO) 0.7 K/uL (0.1-1.0); MONOCYTES % (AUTO) 6.8 % (2.0-9.0); NEUTROPHILS % (AUTO) 72.5 % (40.0-70.0); PLATELET COUNT (AUTO) 223 K/uL (150-450); RED BLOOD CELL COUNT(AUTO) 5.27 MIL/uL (4.50-5.90); RED CELL DISTRIBUTION WIDTH 12.9 % (11.5-14.5)
[2017-08-15 08:52] LABS: HEMOGLOBIN A1C 7.1 % (4.5-6.2)
[2017-08-15 09:22] LABS: ALANINE AMINOTRANSFERASE 22 U/L (12-78); ALBUMIN 3.8 g/dL (3.4-5.0); ALKALINE PHOSPHATASE 98 U/L (46-116); ANION GAP 9 mmol/L (8-16); ASPARTATE AMINOTRANSFERASE 15 U/L (15-37); BILIRUBIN,TOTAL 0.5 mg/dL (0.1-1.0); CALCIUM, TOTAL 8.6 mg/dL (8.8-10.5); CARBON DIOXIDE 26 mmol/L (22-29); CHLORIDE 106 mmol/L (98-107); CHOL/HDL RATIO 2.5 (4.2-7.3); CHOLESTEROL 178 mg/dL (131-200); CREATININE 0.78 mg/dL (0.60-1.30); FREE T4 (FREE THYROXINE) 0.91 ng/dL (0.76-1.46); GLOMERULAR FILTR. RATE CALC > 60 mL/min (>60); GLUCOSE,RANDOM 53 mg/dL (70-110); HDL CHOLESTEROL 71 mg/dL (40-60); LDL CHOL (CALC.) 82 mg/dL (0-130); POTASSIUM 3.2 mmol/L (3.5-5.1); SODIUM SERUM 141 mmol/L (136-145); THYROID STIMULATING HORMONE 1.38 uIU/mL (0.36-3.74); TRIGLYCERIDES 123 mg/dL (15-150); UREA NITROGEN, BLOOD 8 mg/dL (7-18)
[2017-08-15] MEDS ORDERED: CloNIDine HCL 0.1 MG TABLET PO PRN (09:30)
[2017-08-15] MEDS ORDERED: MAGNESIUM HYDROXIDE SUSPENSION 30 ML UDCUP PO PRN (09:30)
[2017-08-15] MEDS ORDERED: ACETAMINOPHEN 325 MG TABLET PO PRN (09:30)
[2017-08-15] MEDS ORDERED: IBUPROFEN 600 MG TABLET PO PRN (09:30)
[2017-08-15] MEDS ORDERED: PETROLATUM,WHITE 71 GM JELLY TP PRN (09:30)
[2017-08-15] MEDS ORDERED: LOPERAMIDE HCL 2 MG CAPSULE PO PRN ×3 (09:30→14:45)
[2017-08-15] MEDS ORDERED: ALBUTEROL SULFATE HFA 90 MCG/PUFF 8 GM INHALER IH PRN (09:30)
[2017-08-15] MEDS ORDERED: ONDANSETRON HCL 4 MG TABLET PO PRN (09:30)
[2017-08-15] MEDS ORDERED: BENZOCAINE/MENTHOL LOZENGE MM PRN (09:30)
[2017-08-15] MEDS ORDERED: MAG HYDROX/AL HYDROX/SIMETH ES 30 ML SUSPENSION UDCUP PO PRN (09:30)
[2017-08-15] MEDS ORDERED: BACITRACIN 28.4 GM OINTMENT TP PRN (09:30)
[2017-08-15 11:23] LABS: GLUCOMETER DEV NAME(LOC) BV3N5; GLUCOSE,POINT OF CARE 373 MG/DL (70-110)
[2017-08-15] MEDS ORDERED: HydrOXYzine PAMOATE 50 MG CAPSULE PO PRN (11:30)
[2017-08-15] MEDS ORDERED: GuaiFENesin/D-METHORPHAN [SUGAR-FREE] 200-20MG/10 ML SYRUP UDCUP PO PRN (11:30)
[2017-08-15] MEDS: INSULIN LISPRO 100 UNITS/ML SQ PRN ×3 (11:40→21:25)
[2017-08-15] MEDS ORDERED: CYANOCOBALAMIN 1,000 MCG/ML VIAL IM ONE (14:45)
[2017-08-15 15:04] VITALS: BP 113/67
[2017-08-15 16:00] VITALS: BP 113/65
[2017-08-15] MEDS: GlipiZIDE 10 MG TABLET PO SCH (16:30)
[2017-08-15] MEDS: THIAMINE HCL 100 MG TABLET PO SCH (16:43)
[2017-08-15] MEDS: MetFORMIN HCL 500 MG TABLET PO SCH (16:43)
[2017-08-15] MEDS: LORazepam 2 MG TABLET PO PRN ×2 (16:51→21:49)
[2017-08-15 17:16] LABS: GLUCOMETER DEV NAME(LOC) BV3N5; GLUCOSE,POINT OF CARE 243 MG/DL (70-110)
[2017-08-15] MEDS ORDERED: POTASSIUM CHLORIDE 20 MEQ ER TABLET PO ONE (17:30)
[2017-08-15] MEDS ORDERED: INSULIN DETEMIR 100 UNITS/ML SQ SCH (21:00)
[2017-08-15] MEDS: BIMATOPROST 0.01% 2.5 ML OPHTHALMIC SOLUTION OU SCH (21:16)
[2017-08-15] MEDS: ZOLPIDEM TARTRATE 10 MG TABLET PO PRN (21:17)
[2017-08-15] MEDS: SIMVASTATIN 40 MG TABLET PO SCH (21:17)
[2017-08-15] MEDS: ASENAPINE 5 MG SUBLINGUAL TABLET SL SCH (21:17)
[2017-08-15] MEDS: INSULIN GLARGINE,HUM.REC.ANLOG 100 UNITS/ML SQ SCH (21:25)
[2017-08-15 21:40] LABS: GLUCOMETER DEV NAME(LOC) BV3N5; GLUCOSE,POINT OF CARE 348 MG/DL (70-110)
[2017-08-16] VITALS (7 sets, daily range): BP systolic 112–124; BP diastolic 64–78
[2017-08-16 06:15] LABS: GLUCOMETER DEV NAME(LOC) BV3N5; GLUCOSE,POINT OF CARE 299 MG/DL (70-110)
[2017-08-16] MEDS: INSULIN LISPRO 100 UNITS/ML SQ PRN ×4 (06:20→20:43)
[2017-08-16] MEDS: GlipiZIDE 10 MG TABLET PO SCH ×2 (06:20→16:30)
[2017-08-16] MEDS: MetFORMIN HCL 500 MG TABLET PO SCH ×2 (06:20→17:00)
[2017-08-16] MEDS ORDERED: LORazepam 2 MG TABLET PO PRN (07:00)
[2017-08-16 08:49] LABS: ANION GAP 8 mmol/L (8-16); CALCIUM, TOTAL 8.4 mg/dL (8.8-10.5); CARBON DIOXIDE 27 mmol/L (22-29); CHLORIDE 105 mmol/L (98-107); CREATININE 0.86 mg/dL (0.60-1.30); GLOMERULAR FILTR. RATE CALC > 60 mL/min (>60); GLUCOSE,RANDOM 243 mg/dL (70-110); POTASSIUM 4.5 mmol/L (3.5-5.1); SODIUM SERUM 140 mmol/L (136-145); UREA NITROGEN, BLOOD 13 mg/dL (7-18)
[2017-08-16] MEDS: THIAMINE HCL 100 MG TABLET PO SCH ×2 (09:39→17:05)
[2017-08-16] MEDS: BRINZOLAMIDE 1% 10 ML OPHTHALMIC SUSPENSION OU SCH (09:39)
[2017-08-16] MEDS: OMEGA-3/DHA/EPA/FISH OIL 1,000 MG CAPSULE PO SCH (09:39)
[2017-08-16] MEDS: LORazepam 2 MG TABLET PO SCH ×4 (09:39→20:33)
[2017-08-16] MEDS: NALTREXONE HCL 50 MG TABLET PO SCH (09:40)
[2017-08-16] MEDS: MULTIVITAMINS WITH MINERALS, THERAPEUTIC TABLET PO SCH (09:40)
[2017-08-16] MEDS: LISINOPRIL 10 MG TABLET PO SCH (09:40)
[2017-08-16] MEDS: FOLIC ACID 1 MG TABLET PO SCH (09:40)
[2017-08-16] MEDS: ASENAPINE 5 MG SUBLINGUAL TABLET SL SCH ×2 (09:40→20:33)
[2017-08-16 11:50] LABS: GLUCOMETER DEV NAME(LOC) BV3N5; GLUCOSE,POINT OF CARE 362 MG/DL (70-110)
[2017-08-16 16:54] LABS: GLUCOMETER DEV NAME(LOC) BV3N5; GLUCOSE,POINT OF CARE 352 MG/DL (70-110)
[2017-08-16] MEDS: SIMVASTATIN 40 MG TABLET PO SCH (20:33)
[2017-08-16] MEDS: BIMATOPROST 0.01% 2.5 ML OPHTHALMIC SOLUTION OU SCH (20:34)
[2017-08-16] MEDS: INSULIN GLARGINE,HUM.REC.ANLOG 100 UNITS/ML SQ SCH (20:43)
[2017-08-16 20:53] LABS: GLUCOMETER DEV NAME(LOC) BV3N5; GLUCOSE,POINT OF CARE 272 MG/DL (70-110)
[2017-08-16] MEDS ORDERED: INSULIN GLARGINE,HUM.REC.ANLOG 100 UNITS/ML SQ SCH (21:00)
[2017-08-17 06:13] VITALS: BP 145/92
[2017-08-17 06:14] VITALS: BP 145/92
[2017-08-17 06:15] LABS: GLUCOMETER DEV NAME(LOC) BV3N5; GLUCOSE,POINT OF CARE 287 MG/DL (70-110)
[2017-08-17] MEDS: GlipiZIDE 10 MG TABLET PO SCH ×2 (06:30→16:30)
[2017-08-17] MEDS: MetFORMIN HCL 500 MG TABLET PO SCH ×2 (06:36→16:45)
[2017-08-17] MEDS: INSULIN LISPRO 100 UNITS/ML SQ PRN ×4 (06:47→21:25)
[2017-08-17 07:05] VITALS: BP 122/87
[2017-08-17 08:09] VITALS: BP 118/67
[2017-08-17] MEDS: MULTIVITAMINS WITH MINERALS, THERAPEUTIC TABLET PO SCH (08:50)
[2017-08-17] MEDS: BRINZOLAMIDE 1% 10 ML OPHTHALMIC SUSPENSION OU SCH (08:50)
[2017-08-17] MEDS: THIAMINE HCL 100 MG TABLET PO SCH ×2 (08:50→16:51)
[2017-08-17] MEDS: ASENAPINE 5 MG SUBLINGUAL TABLET SL SCH ×2 (08:50→21:23)
[2017-08-17] MEDS: FOLIC ACID 1 MG TABLET PO SCH (08:50)
[2017-08-17] MEDS: LISINOPRIL 10 MG TABLET PO SCH (08:50)
[2017-08-17] MEDS: OMEGA-3/DHA/EPA/FISH OIL 1,000 MG CAPSULE PO SCH (08:50)
[2017-08-17] MEDS: NALTREXONE HCL 50 MG TABLET PO SCH (08:58)
[2017-08-17] MEDS: LORazepam 2 MG TABLET PO SCH ×4 (09:00→21:23)
[2017-08-17 11:41] LABS: GLUCOMETER DEV NAME(LOC) BV3N5; GLUCOSE,POINT OF CARE 234 MG/DL (70-110)
[2017-08-17] MEDS ORDERED: ASEN5TAB6 SL (15:12)
[2017-08-17] MEDS ORDERED: NALT50TA PO (15:12)
[2017-08-17 17:08] VITALS: BP 112/66
[2017-08-17 17:29] LABS: GLUCOMETER DEV NAME(LOC) BV3N5; GLUCOSE,POINT OF CARE 321 MG/DL (70-110)
[2017-08-17] MEDS: BIMATOPROST 0.01% 2.5 ML OPHTHALMIC SOLUTION OU SCH (21:23)
[2017-08-17] MEDS: SIMVASTATIN 40 MG TABLET PO SCH (21:23)
[2017-08-17] MEDS: INSULIN GLARGINE,HUM.REC.ANLOG 100 UNITS/ML SQ SCH (21:24)
[2017-08-17] MEDS: ZOLPIDEM TARTRATE 10 MG TABLET PO PRN (21:32)
[2017-08-17 21:33] LABS: GLUCOMETER DEV NAME(LOC) BV3N5; GLUCOSE,POINT OF CARE 334 MG/DL (70-110)
[2017-08-18 06:23] VITALS: BP 120/77
[2017-08-18] MEDS ORDERED: GlipiZIDE 10 MG TABLET PO SCH (06:30)
[2017-08-18 06:54] LABS: GLUCOMETER DEV NAME(LOC) BV3N5; GLUCOSE,POINT OF CARE 137 MG/DL (70-110)
[2017-08-18] MEDS: INSULIN LISPRO 100 UNITS/ML SQ PRN ×2 (06:55→12:21)
[2017-08-18] MEDS ORDERED: LORazepam 1 MG TABLET PO PRN (07:00)
[2017-08-18] MEDS: MetFORMIN HCL 500 MG TABLET PO SCH (07:00)
[2017-08-18 07:21] VITALS: BP 120/78
[2017-08-18 08:00] VITALS: BP 112/65
[2017-08-18 08:04] VITALS: BP 112/65
[2017-08-18] MEDS ORDERED: LORazepam 1 MG TABLET PO SCH (09:00)
[2017-08-18] MEDS: LISINOPRIL 10 MG TABLET PO SCH (09:06)
[2017-08-18] MEDS: THIAMINE HCL 100 MG TABLET PO SCH (09:06)
[2017-08-18] MEDS: OMEGA-3/DHA/EPA/FISH OIL 1,000 MG CAPSULE PO SCH (09:06)
[2017-08-18] MEDS: MULTIVITAMINS WITH MINERALS, THERAPEUTIC TABLET PO SCH (09:06)
[2017-08-18] MEDS: FOLIC ACID 1 MG TABLET PO SCH (09:07)
[2017-08-18] MEDS: NALTREXONE HCL 50 MG TABLET PO SCH (09:07)
[2017-08-18] MEDS: ASENAPINE 5 MG SUBLINGUAL TABLET SL SCH (09:08)
[2017-08-18] MEDS: BRINZOLAMIDE 1% 10 ML OPHTHALMIC SUSPENSION OU SCH (09:15)
[2017-08-18 12:29] LABS: GLUCOMETER DEV NAME(LOC) BV3N5; GLUCOSE,POINT OF CARE 137 MG/DL (70-110)
[2017-08-18] MEDS ORDERED: VITAD1000 PO (14:15)
[2017-08-18] MEDS ORDERED: GLIP10 PO (14:15)
[2017-08-18] MEDS ORDERED: INSLAN SQ (14:15)
[2017-08-18] MEDS ORDERED: ASEN10TA8 SL (14:17)
[2017-08-18] MEDS ORDERED: NALT50TA6 PO (14:17)
[2017-08-19] MEDS ORDERED: LORazepam 1 MG TABLET PO PRN (07:00)
== END 2017-08-18 15:02 | disposition home or self-care (01) | DRG 750 ==
LOC: EDSTATUS 21:07 → B3A 21:07 → EDSTATUS 21:10
PROVIDERS: ADMIT Psychiatry & Neurology Psychiatry; ATTEND Psychiatry & Neurology Psychiatry
DX: F20.0 Paranoid schizophrenia (principal); R45.851 Suicidal ideations; E10.65 Type 1 diabetes mellitus with hyperglycemia; I10 Essential (primary) hypertension; E10.319 Type 1 diabetes mellitus with unspecified diabetic retinopathy without macular edema; F32.9 Major depressive disorder, single episode, unspecified; E78.5 Hyperlipidemia, unspecified; F17.200 Nicotine dependence, unspecified, uncomplicated; F84.0 Autistic disorder; G47.00 Insomnia, unspecified; G89.29 Other chronic pain; M54.9 Dorsalgia, unspecified; H40.9 Unspecified glaucoma; K21.9 Gastro-esophageal reflux disease without esophagitis; Z65.3 Problems related to other legal circumstances; Z79.4 Long term (current) use of insulin; Z79.899 Other long term (current) drug therapy; Z88.2 Allergy status to sulfonamides; Z91.19 Patient's noncompliance with other medical treatment and regimen; Z88.8 Allergy status to other drugs, medicaments and biological substances; Z71.6 Tobacco abuse counseling
CPT/HCPCS: 82306; 83036; 84439; 84443; 99285; J1815; J3420

== ENCOUNTER 2017-12-03 12:17 | Inpatient (IN) | payer MEDICAID ==
[~2017-12-03] VITALS: Ht 162.6 cm; Wt 78.5 kg
[~2017-12-03 12:17] MED LIST changes: -ACID1TAB8 PO; +ASEN10TA8 SL; +INSLAN SQ; -INSU100V12 SQ; +NALT50TA PO; +NALT50TA6 PO; +VITAD1000 PO
[2017-12-03 17:00] VITALS: BP 111/71
[2017-12-03] MEDS ORDERED: ZOLPIDEM TARTRATE 10 MG TABLET PO PRN (17:15)
[2017-12-03] MEDS ORDERED: LORazepam 2 MG TABLET PO PRN (17:15)
[2017-12-03 18:15] VITALS: BP 117/77
[2017-12-03 19:04] LABS: GLUCOMETER DEV NAME(LOC) BV2S 2; GLUCOSE,POINT OF CARE 265 MG/DL (70-110)
[2017-12-03] MEDS ORDERED: GLUCAGON,HUMAN RECOMBINANT 1 MG VIAL IM PRN (19:45)
[2017-12-03] MEDS ORDERED: IBUPROFEN 400 MG TABLET PO PRN (20:15)
[2017-12-03] MEDS ORDERED: ACETAMINOPHEN 325 MG TABLET PO PRN (20:15)
[2017-12-03] MEDS ORDERED: GuaiFENesin/D-METHORPHAN [SUGAR-FREE] 200-20MG/10 ML SYRUP UDCUP PO PRN (20:15)
[2017-12-03] MEDS ORDERED: LOPERAMIDE HCL 2 MG CAPSULE PO PRN (20:15)
[2017-12-03] MEDS ORDERED: MAG HYDROX/AL HYDROX/SIMETH ES 30 ML SUSPENSION UDCUP PO PRN (20:15)
[2017-12-03] MEDS ORDERED: DOCUSATE SODIUM 100 MG CAPSULE PO PRN (20:15)
[2017-12-03] MEDS ORDERED: CloNIDine HCL 0.1 MG TABLET PO PRN (20:15)
[2017-12-03] MEDS ORDERED: ONDANSETRON HCL 4 MG TABLET PO PRN (20:15)
[2017-12-03] MEDS ORDERED: PETROLATUM,WHITE 71 GM JELLY TP PRN (20:15)
[2017-12-03] MEDS ORDERED: NICOTINE 14 MG/24 HOUR PATCH TD PRN (20:15)
[2017-12-03] MEDS ORDERED: ALBUTEROL SULFATE HFA 90 MCG/PUFF 8 GM INHALER IH PRN (20:15)
[2017-12-03] MEDS ORDERED: MAGNESIUM HYDROXIDE SUSPENSION 30 ML UDCUP PO PRN (20:15)
[2017-12-03] MEDS: INSULIN GLARGINE,HUM.REC.ANLOG 100 UNITS/ML SQ SCH (20:34)
[2017-12-03] MEDS: INSULIN LISPRO 100 UNITS/ML SQ PRN (20:36)
[2017-12-03 20:39] LABS: GLUCOMETER DEV NAME(LOC) BV2S 2; GLUCOSE,POINT OF CARE 248 MG/DL (70-110)
[2017-12-03] MEDS: SIMVASTATIN 40 MG TABLET PO SCH (21:58)
[2017-12-04] MEDS: GlipiZIDE 10 MG TABLET PO SCH ×3 (06:30→16:30)
[2017-12-04 06:39] VITALS: BP 123/86
[2017-12-04] MEDS: INSULIN LISPRO 100 UNITS/ML SQ PRN ×4 (06:41→20:43)
[2017-12-04] MEDS: MetFORMIN HCL 500 MG TABLET PO SCH ×3 (06:46→16:47)
[2017-12-04 08:06] LABS: BASOPHILS % (AUTO) 0.6 % (0.0-2.0); EOSINOPHILS % (AUTO) 2.8 % (1.0-6.0); HEMOGLOBIN 16.4 g/dL (13.5-17.5); LYMPHOCYTES # (AUTO) 2.8 K/uL (1.0-4.8); LYMPHOCYTES % (AUTO) 34.9 % (22.0-44.0); MEAN CORPUSCULAR HEMOGLOBIN 30.3 pg (26.0-34.0); MEAN CORPUSCULAR HGB CONC 34.8 G/dL (31.0-37.0); MEAN CORPUSCULAR VOLUME 87 fL (80-100); MONOCYTES # (AUTO) 0.7 K/uL (0.1-1.0); MONOCYTES % (AUTO) 8.7 % (2.0-9.0); NEUTROPHILS # (AUTO) 4.2 K/uL (1.8-7.7); PLATELET COUNT (AUTO) 208 K/uL (150-450); RED CELL DISTRIBUTION WIDTH 12.4 % (11.5-14.5)
[2017-12-04 08:11] VITALS: BP 121/82
[2017-12-04 08:41] LABS: ALANINE AMINOTRANSFERASE 19 U/L (12-78); ALBUMIN 3.3 g/dL (3.4-5.0); ALKALINE PHOSPHATASE 95 U/L (46-116); ANION GAP 5 mmol/L (8-16); ASPARTATE AMINOTRANSFERASE 14 U/L (15-37); BILIRUBIN,TOTAL 0.7 mg/dL (0.1-1.0); CALCIUM, TOTAL 8.5 mg/dL (8.8-10.5); CARBON DIOXIDE 28 mmol/L (22-29); CHLORIDE 105 mmol/L (98-107); CHOL/HDL RATIO 2.9 (4.2-7.3); CHOLESTEROL 182 mg/dL (131-200); CREATININE 0.79 mg/dL (0.60-1.30); GLOMERULAR FILTR. RATE CALC > 60 mL/min (>60); GLUCOSE,RANDOM 194 mg/dL (70-110); HDL CHOLESTEROL 63 mg/dL (40-60); LDL CHOL (CALC.) 97 mg/dL (0-130); POTASSIUM 3.9 mmol/L (3.5-5.1); SODIUM SERUM 138 mmol/L (136-145); THYROID STIMULATING HORMONE 0.98 uIU/mL (0.36-3.74); TOTAL PROTEIN, SERUM 6.5 g/dL (6.4-8.2); TRIGLYCERIDES 112 mg/dL (15-150); UREA NITROGEN, BLOOD 13 mg/dL (7-18)
[2017-12-04] MEDS: LISINOPRIL 10 MG TABLET PO SCH (09:28)
[2017-12-04] MEDS: OMEGA-3/DHA/EPA/FISH OIL 1,000 MG CAPSULE PO SCH (09:28)
[2017-12-04] MEDS: BRINZOLAMIDE 1% 10 ML OPHTHALMIC SUSPENSION OU SCH (09:29)
[2017-12-04] MEDS: BIMATOPROST 0.01% 2.5 ML OPHTHALMIC SOLUTION OU SCH (09:41)
[2017-12-04 11:20] LABS: GLUCOMETER DEV NAME(LOC) BV2S 2; GLUCOSE,POINT OF CARE 372 MG/DL (70-110)
[2017-12-04 16:35] VITALS: BP 111/69
[2017-12-04 17:05] LABS: GLUCOMETER DEV NAME(LOC) BV2S 2; GLUCOSE,POINT OF CARE 213 MG/DL (70-110)
[2017-12-04] MEDS: ASENAPINE 10 MG SUBLINGUAL TABLET SL SCH (20:19)
[2017-12-04] MEDS: SIMVASTATIN 40 MG TABLET PO SCH (20:19)
[2017-12-04 20:34] LABS: GLUCOMETER DEV NAME(LOC) BV2S 2; GLUCOSE,POINT OF CARE 155 MG/DL (70-110)
[2017-12-04] MEDS: INSULIN GLARGINE,HUM.REC.ANLOG 100 UNITS/ML SQ SCH (20:43)
[2017-12-05 06:02] VITALS: BP 104/65
[2017-12-05] MEDS: GlipiZIDE 10 MG TABLET PO SCH ×2 (06:30→16:30)
[2017-12-05] MEDS: MetFORMIN HCL 500 MG TABLET PO SCH ×2 (06:45→17:00)
[2017-12-05 07:19] LABS: GLUCOMETER DEV NAME(LOC) BV2S 2; GLUCOSE,POINT OF CARE 140 MG/DL (70-110)
[2017-12-05 08:21] VITALS: BP 110/61
[2017-12-05] MEDS: LISINOPRIL 10 MG TABLET PO SCH (09:24)
[2017-12-05] MEDS: BRINZOLAMIDE 1% 10 ML OPHTHALMIC SUSPENSION OU SCH (09:24)
[2017-12-05] MEDS: BIMATOPROST 0.01% 2.5 ML OPHTHALMIC SOLUTION OU SCH (09:24)
[2017-12-05] MEDS: OMEGA-3/DHA/EPA/FISH OIL 1,000 MG CAPSULE PO SCH (09:24)
[2017-12-05] MEDS: ASENAPINE 10 MG SUBLINGUAL TABLET SL SCH ×2 (09:24→20:23)
[2017-12-05] MEDS: INSULIN LISPRO 100 UNITS/ML SQ PRN ×2 (12:18→20:30)
[2017-12-05 12:19] LABS: GLUCOMETER DEV NAME(LOC) BV2S 2; GLUCOSE,POINT OF CARE 232 MG/DL (70-110)
[2017-12-05 16:24] VITALS: BP 110/65
[2017-12-05 16:45] LABS: GLUCOMETER DEV NAME(LOC) BV2S 2; GLUCOSE,POINT OF CARE 478 MG/DL (70-110)
[2017-12-05] MEDS ORDERED: INSULIN LISPRO 100 UNITS/ML SQ ONE (17:15)
[2017-12-05] MEDS: SIMVASTATIN 40 MG TABLET PO SCH (20:24)
[2017-12-05] MEDS: INSULIN GLARGINE,HUM.REC.ANLOG 100 UNITS/ML SQ SCH (20:29)
[2017-12-05 20:44] LABS: GLUCOMETER DEV NAME(LOC) BV2S 2; GLUCOSE,POINT OF CARE 203 MG/DL (70-110)
[2017-12-05 20:44] LABS: GLUCOMETER DEV NAME(LOC) BV2S 2; GLUCOSE,POINT OF CARE 290 MG/DL (70-110)
[2017-12-06 02:19] LABS: GLUCOMETER DEV NAME(LOC) BV2S 2; GLUCOSE,POINT OF CARE 99 MG/DL (70-110)
[2017-12-06 02:28] VITALS: BP 120/76
[2017-12-06] MEDS: GlipiZIDE 10 MG TABLET PO SCH ×2 (06:30→16:30)
[2017-12-06 06:36] LABS: GLUCOMETER DEV NAME(LOC) BV2S 2; GLUCOSE,POINT OF CARE 81 MG/DL (70-110)
[2017-12-06] MEDS: MetFORMIN HCL 500 MG TABLET PO SCH ×2 (06:55→16:41)
[2017-12-06 08:06] VITALS: BP 108/60
[2017-12-06 08:36] LABS: AMPHET/METH SCREEN,URINE NEGATIVE (NEGATIVE); BARBITURATE SCREEN, URINE NEGATIVE (NEGATIVE); BENZODIAZEPINES SCREEN,URINE NEGATIVE (NEGATIVE); CANNABINOID SCREEN,URINE NEGATIVE (NEGATIVE); COCAINE SCREEN,URINE NEGATIVE (NEGATIVE); METHADONE SCREEN, URINE NEGATIVE (NEGATIVE); OPIATE SCREEN,URINE NEGATIVE (NEGATIVE)
[2017-12-06 08:44] LABS: PHENCYCLIDINE SCREEN,URINE NEGATIVE (NEGATIVE)
[2017-12-06 08:51] LABS: BILIRUBIN,URINE NEGATIVE (NEGATIVE); GLUCOSE, URINE (UA) 250 mg/dL (NEGATIVE); KETONES,URINE NEGATIVE (NEGATIVE); LEUKOCYTE ESTERASE ,URINE NEGATIVE (NEGATIVE); NITRATE,URINE NEGATIVE (NEGATIVE); OCCULT BLOOD,URINE NEGATIVE (NEGATIVE); PH,URINE 6.5 (5.0-8.0); PROTEIN,URINE NEGATIVE (NEGATIVE); UROBILINOGEN,URINE 0.2 mg/dL (<=1.0)
[2017-12-06 08:52] LABS: APPEARANCE,URINE CLEAR (CLEAR)
[2017-12-06 08:53] LABS: BACTERIA,URINE None Seen /HPF (None Seen); RBC,URINE None Seen /HPF (0-2); WBC,URINE None Seen /HPF (0-5)
[2017-12-06 09:25] VITALS: BP 128/78
[2017-12-06] MEDS: ASENAPINE 10 MG SUBLINGUAL TABLET SL SCH ×2 (09:40→20:04)
[2017-12-06] MEDS: OMEGA-3/DHA/EPA/FISH OIL 1,000 MG CAPSULE PO SCH (09:40)
[2017-12-06] MEDS: BRINZOLAMIDE 1% 10 ML OPHTHALMIC SUSPENSION OU SCH (09:40)
[2017-12-06] MEDS: LISINOPRIL 10 MG TABLET PO SCH (09:40)
[2017-12-06] MEDS: BIMATOPROST 0.01% 2.5 ML OPHTHALMIC SOLUTION OU SCH (09:46)
[2017-12-06] MEDS: INSULIN LISPRO 100 UNITS/ML SQ PRN ×3 (11:36→20:12)
[2017-12-06 11:39] LABS: GLUCOMETER DEV NAME(LOC) BV2S 2; GLUCOSE,POINT OF CARE 285 MG/DL (70-110)
[2017-12-06 15:58] VITALS: BP 116/70
[2017-12-06 16:08] VITALS: BP 116/70
[2017-12-06 17:05] LABS: GLUCOMETER DEV NAME(LOC) BV2S 2; GLUCOSE,POINT OF CARE 271 MG/DL (70-110)
[2017-12-06] MEDS: SIMVASTATIN 40 MG TABLET PO SCH (20:04)
[2017-12-06] MEDS: INSULIN GLARGINE,HUM.REC.ANLOG 100 UNITS/ML SQ SCH (20:12)
[2017-12-06 20:55] LABS: GLUCOMETER DEV NAME(LOC) BV2S 2; GLUCOSE,POINT OF CARE 292 MG/DL (70-110)
[2017-12-07 02:50] VITALS: BP 117/74
[2017-12-07 06:15] LABS: GLUCOMETER DEV NAME(LOC) BV2S 2; GLUCOSE,POINT OF CARE 224 MG/DL (70-110)
[2017-12-07] MEDS: GlipiZIDE 10 MG TABLET PO SCH ×2 (06:30→16:30)
[2017-12-07] MEDS: MetFORMIN HCL 500 MG TABLET PO SCH ×2 (06:37→16:57)
[2017-12-07] MEDS: INSULIN LISPRO 100 UNITS/ML SQ PRN ×3 (06:57→20:44)
[2017-12-07 09:07] VITALS: BP_SYST 101; BP_SYST 120; BP_DIAS 64
[2017-12-07] MEDS: ASENAPINE 10 MG SUBLINGUAL TABLET SL SCH ×2 (09:13→20:34)
[2017-12-07] MEDS: LISINOPRIL 10 MG TABLET PO SCH (09:13)
[2017-12-07] MEDS: OMEGA-3/DHA/EPA/FISH OIL 1,000 MG CAPSULE PO SCH (09:13)
[2017-12-07] MEDS: BRINZOLAMIDE 1% 10 ML OPHTHALMIC SUSPENSION OU SCH (09:14)
[2017-12-07] MEDS: BIMATOPROST 0.01% 2.5 ML OPHTHALMIC SOLUTION OU SCH (09:16)
[2017-12-07 12:09] LABS: GLUCOMETER DEV NAME(LOC) BV2S 2; GLUCOSE,POINT OF CARE 127 MG/DL (70-110)
[2017-12-07 16:15] VITALS: BP 108/70
[2017-12-07] MEDS: SIMVASTATIN 40 MG TABLET PO SCH (20:34)
[2017-12-07] MEDS: INSULIN GLARGINE,HUM.REC.ANLOG 100 UNITS/ML SQ SCH (20:41)
[2017-12-07 21:44] LABS: GLUCOMETER DEV NAME(LOC) BV2S 2; GLUCOSE,POINT OF CARE 310 MG/DL (70-110)
[2017-12-07 21:44] LABS: GLUCOMETER DEV NAME(LOC) BV2S 2; GLUCOSE,POINT OF CARE 375 MG/DL (70-110)
[2017-12-08 02:53] VITALS: BP 109/82
[2017-12-08] MEDS: GlipiZIDE 10 MG TABLET PO SCH ×2 (06:30→16:30)
[2017-12-08] MEDS: MetFORMIN HCL 500 MG TABLET PO SCH ×2 (06:36→16:43)
[2017-12-08 06:40] LABS: GLUCOMETER DEV NAME(LOC) BV2S 2; GLUCOSE,POINT OF CARE 111 MG/DL (70-110)
[2017-12-08] MEDS: ASENAPINE 10 MG SUBLINGUAL TABLET SL SCH ×2 (08:24→20:42)
[2017-12-08] MEDS: LISINOPRIL 10 MG TABLET PO SCH (08:24)
[2017-12-08] MEDS: OMEGA-3/DHA/EPA/FISH OIL 1,000 MG CAPSULE PO SCH (08:24)
[2017-12-08] MEDS: BRINZOLAMIDE 1% 10 ML OPHTHALMIC SUSPENSION OU SCH (08:24)
[2017-12-08 08:25] VITALS: BP 113/78
[2017-12-08] MEDS: BIMATOPROST 0.01% 2.5 ML OPHTHALMIC SOLUTION OU SCH (08:34)
[2017-12-08] MEDS ORDERED: INSULIN LISPRO 100 UNITS/ML SQ ONE (11:15)
[2017-12-08 11:29] LABS: GLUCOMETER DEV NAME(LOC) BV2S 2; GLUCOSE,POINT OF CARE 415 MG/DL (70-110)
[2017-12-08 13:18] LABS: GLUCOMETER DEV NAME(LOC) BV2S 2; GLUCOSE,POINT OF CARE 224 MG/DL (70-110)
[2017-12-08 13:18] LABS: GLUCOMETER DEV NAME(LOC) BV2S 2; GLUCOSE,POINT OF CARE 414 MG/DL (70-110)
[2017-12-08] MEDS: INSULIN LISPRO 100 UNITS/ML SQ PRN ×2 (16:56→20:52)
[2017-12-08 17:25] LABS: GLUCOMETER DEV NAME(LOC) BV2S 2; GLUCOSE,POINT OF CARE 177 MG/DL (70-110)
[2017-12-08 19:10] VITALS: BP 123/84
[2017-12-08] MEDS: SIMVASTATIN 40 MG TABLET PO SCH (20:43)
[2017-12-08] MEDS ORDERED: INSULIN GLARGINE,HUM.REC.ANLOG 100 UNITS/ML SQ SCH (21:00)
[2017-12-08 23:29] LABS: GLUCOMETER DEV NAME(LOC) BV2S 2; GLUCOSE,POINT OF CARE 248 MG/DL (70-110)
[2017-12-09 00:55] VITALS: BP 124/71
[2017-12-09] MEDS ORDERED: OMEG-135 PO (04:40)
[2017-12-09] MEDS ORDERED: GLIP10 PO (04:40)
[2017-12-09] MEDS ORDERED: METF-960 PO (04:40)
[2017-12-09] MEDS ORDERED: ASEN10TA8 SL (04:40)
[2017-12-09] MEDS: GlipiZIDE 10 MG TABLET PO SCH (06:30)
[2017-12-09] MEDS: MetFORMIN HCL 500 MG TABLET PO SCH (07:00)
[2017-12-09] MEDS: INSULIN LISPRO 100 UNITS/ML SQ PRN ×2 (07:20→11:28)
[2017-12-09 07:24] LABS: GLUCOMETER DEV NAME(LOC) BV2S 2; GLUCOSE,POINT OF CARE 170 MG/DL (70-110)
[2017-12-09 08:22] VITALS: BP 108/63
[2017-12-09] MEDS: ASENAPINE 10 MG SUBLINGUAL TABLET SL SCH (09:23)
[2017-12-09] MEDS: LISINOPRIL 10 MG TABLET PO SCH (09:23)
[2017-12-09] MEDS: OMEGA-3/DHA/EPA/FISH OIL 1,000 MG CAPSULE PO SCH (09:23)
[2017-12-09] MEDS: BIMATOPROST 0.01% 2.5 ML OPHTHALMIC SOLUTION OU SCH (09:23)
[2017-12-09] MEDS: BRINZOLAMIDE 1% 10 ML OPHTHALMIC SUSPENSION OU SCH (09:23)
[2017-12-09 11:24] LABS: GLUCOMETER DEV NAME(LOC) BV2S 2; GLUCOSE,POINT OF CARE 169 MG/DL (70-110)
== END 2017-12-09 13:31 | disposition home or self-care (01) | DRG 750 ==
LOC: B2S 17:14
PROVIDERS: ADMIT Psychiatry & Neurology Psychiatry; ATTEND Psychiatry & Neurology Psychiatry
DX: F25.0 Schizoaffective disorder, bipolar type (principal); E11.9 Type 2 diabetes mellitus without complications; R45.87 Impulsiveness; E78.5 Hyperlipidemia, unspecified; I10 Essential (primary) hypertension; F17.200 Nicotine dependence, unspecified, uncomplicated; J45.909 Unspecified asthma, uncomplicated; Z91.5 Personal history of self-harm; K21.9 Gastro-esophageal reflux disease without esophagitis; F41.9 Anxiety disorder, unspecified; Z71.6 Tobacco abuse counseling; Z23 Encounter for immunization; E55.9 Vitamin D deficiency, unspecified; Z88.1 Allergy status to other antibiotic agents; Z88.8 Allergy status to other drugs, medicaments and biological substances
CPT/HCPCS: 80307; 83036; 84439; 84443; 90686; J1815

== ENCOUNTER 2018-03-18 19:45 | Inpatient (IN) | payer MEDICAID ==
[~2018-03-18] VITALS: Ht 162.6 cm; Wt 77.3 kg
[~2018-03-18 19:45] MED LIST changes: -ASEN5TAB6 SL; -GLIP10 PO; -INSLAN SQ; -METF500T PO; -NALT50TA PO; -NALT50TA6 PO; -VITAD1000 PO
[2018-03-18] MEDS ORDERED: ZOLPIDEM TARTRATE 10 MG TABLET PO PRN (22:45)
[2018-03-18 23:05] VITALS: BP 116/74
[2018-03-19 00:50] VITALS: BP 112/71
[2018-03-19] MEDS ORDERED: -PHARMACY VACCINE NOTE- MISC ONE (01:00)
[2018-03-19] MEDS ORDERED: PNEUMOCOCCAL VACCINE POLYVALENT 0.5 ML VIAL [PPSV23] IM ONE (01:00)
[2018-03-19] MEDS ORDERED: INSULIN LISPRO 100 UNITS/ML SQ ONE (05:45)
[2018-03-19] MEDS ORDERED: CloNIDine HCL 0.1 MG TABLET PO PRN (05:45)
[2018-03-19] MEDS ORDERED: MAG HYDROX/AL HYDROX/SIMETH ES 30 ML SUSPENSION UDCUP PO PRN (05:45)
[2018-03-19] MEDS ORDERED: GLUCAGON,HUMAN RECOMBINANT 1 MG VIAL IM PRN (05:45)
[2018-03-19] MEDS ORDERED: ONDANSETRON HCL 4 MG TABLET PO PRN (05:45)
[2018-03-19] MEDS ORDERED: ACETAMINOPHEN 325 MG TABLET PO PRN (05:45)
[2018-03-19] MEDS ORDERED: PETROLATUM,WHITE 71 GM JELLY TP PRN (05:45)
[2018-03-19] MEDS ORDERED: IBUPROFEN 400 MG TABLET PO PRN (05:45)
[2018-03-19] MEDS ORDERED: DOCUSATE SODIUM 100 MG CAPSULE PO PRN (05:45)
[2018-03-19] MEDS ORDERED: LOPERAMIDE HCL 2 MG CAPSULE PO PRN (05:45)
[2018-03-19] MEDS ORDERED: GuaiFENesin/D-METHORPHAN [SUGAR-FREE] 200-20MG/10 ML SYRUP UDCUP PO PRN (05:45)
[2018-03-19 06:44] LABS: GLUCOMETER DEV NAME(LOC) BV3N.; GLUCOSE,POINT OF CARE 106 MG/DL (70-110)
[2018-03-19 07:20] LABS: BASOPHILS % (AUTO) 0.8 % (0.0-2.0); EOSINOPHILS % (AUTO) 3.2 % (1.0-6.0); HEMATOCRIT 44.9 % (41-53); HEMOGLOBIN 15.2 g/dL (13.5-17.5); LYMPHOCYTES # (AUTO) 2.6 K/uL (1.0-4.8); LYMPHOCYTES % (AUTO) 36.2 % (22.0-44.0); MEAN CORPUSCULAR HEMOGLOBIN 29.8 pg (26.0-34.0); MEAN CORPUSCULAR HGB CONC 33.8 G/dL (31.0-37.0); MEAN CORPUSCULAR VOLUME 88 fL (80-100); MONOCYTES # (AUTO) 0.6 K/uL (0.1-1.0); MONOCYTES % (AUTO) 8.8 % (2.0-9.0); NEUTROPHILS # (AUTO) 3.6 K/uL (1.8-7.7); PLATELET COUNT (AUTO) 191 K/uL (150-450); RED BLOOD CELL COUNT(AUTO) 5.09 MIL/uL (4.50-5.90); RED CELL DISTRIBUTION WIDTH 12.5 % (11.5-14.5)
[2018-03-19 07:41] LABS: HEMOGLOBIN A1C 7.1 % (4.5-6.2)
[2018-03-19 07:59] LABS: ALANINE AMINOTRANSFERASE 22 U/L (12-78); ALBUMIN 3.3 g/dL (3.4-5.0); ALKALINE PHOSPHATASE 97 U/L (46-116); ANION GAP 7 mmol/L (8-16); ASPARTATE AMINOTRANSFERASE 13 U/L (15-37); BILIRUBIN,TOTAL 0.4 mg/dL (0.1-1.0); CALCIUM, TOTAL 8.5 mg/dL (8.8-10.5); CARBON DIOXIDE 29 mmol/L (22-29); CHLORIDE 106 mmol/L (98-107); CHOL/HDL RATIO 3.3 (4.2-7.3); CHOLESTEROL 153 mg/dL (131-200); FREE T4 (FREE THYROXINE) 0.68 ng/dL (0.76-1.46); GLOMERULAR FILTR. RATE CALC > 60 mL/min (>60); GLUCOSE,RANDOM 126 mg/dL (70-110); HDL CHOLESTEROL 47 mg/dL (40-60); LDL CHOL (CALC.) 77 mg/dL (0-130); POTASSIUM 3.9 mmol/L (3.5-5.1); SODIUM SERUM 142 mmol/L (136-145); THYROID STIMULATING HORMONE 2.83 uIU/mL (0.36-3.74); TOTAL PROTEIN, SERUM 5.9 g/dL (6.4-8.2); TRIGLYCERIDES 144 mg/dL (15-150); UREA NITROGEN, BLOOD 8 mg/dL (7-18)
[2018-03-19 08:00] VITALS: BP 124/72
[2018-03-19] MEDS: INSULIN LISPRO 100 UNITS/ML SQ PRN ×2 (11:35→20:57)
[2018-03-19 11:43] LABS: GLUCOMETER DEV NAME(LOC) BV3N.; GLUCOSE,POINT OF CARE 255 MG/DL (70-110)
[2018-03-19 16:07] VITALS: BP 111/68
[2018-03-19 16:54] LABS: GLUCOMETER DEV NAME(LOC) BV3N.; GLUCOSE,POINT OF CARE 111 MG/DL (70-110)
[2018-03-19] MEDS: ASENAPINE 10 MG SUBLINGUAL TABLET SL SCH (20:51)
[2018-03-19] MEDS: SIMVASTATIN 40 MG TABLET PO SCH (20:51)
[2018-03-19 20:59] LABS: GLUCOMETER DEV NAME(LOC) BV3N.; GLUCOSE,POINT OF CARE 377 MG/DL (70-110)
[2018-03-19] MEDS ORDERED: INSULIN GLARGINE,HUM.REC.ANLOG 100 UNITS/ML SQ SCH (21:00)
[2018-03-20 00:53] VITALS: BP 102/62
[2018-03-20] MEDS: INSULIN LISPRO 100 UNITS/ML SQ PRN ×4 (06:57→21:20)
[2018-03-20 07:19] LABS: GLUCOMETER DEV NAME(LOC) BV2X.; GLUCOSE,POINT OF CARE 262 MG/DL (70-110)
[2018-03-20 08:46] VITALS: BP 121/64
[2018-03-20] MEDS: LISINOPRIL 10 MG TABLET PO SCH (09:23)
[2018-03-20] MEDS: OMEGA-3/DHA/EPA/FISH OIL 1,000 MG CAPSULE PO SCH (09:23)
[2018-03-20] MEDS: ASENAPINE 10 MG SUBLINGUAL TABLET SL SCH ×2 (09:23→21:12)
[2018-03-20 11:14] LABS: GLUCOMETER DEV NAME(LOC) BV2X.; GLUCOSE,POINT OF CARE 267 MG/DL (70-110)
[2018-03-20 16:37] VITALS: BP 118/76
[2018-03-20 16:49] LABS: GLUCOMETER DEV NAME(LOC) BV2X.; GLUCOSE,POINT OF CARE 367 MG/DL (70-110)
[2018-03-20] MEDS: SIMVASTATIN 40 MG TABLET PO SCH (21:12)
[2018-03-20] MEDS: INSULIN GLARGINE,HUM.REC.ANLOG 100 UNITS/ML SQ SCH (21:19)
[2018-03-20 21:40] LABS: GLUCOMETER DEV NAME(LOC) BV2X.; GLUCOSE,POINT OF CARE 368 MG/DL (70-110)
[2018-03-21 00:01] VITALS: BP 120/77
[2018-03-21] MEDS: LORazepam 2 MG TABLET PO PRN ×2 (00:02→21:53)
[2018-03-21] MEDS: INSULIN LISPRO 100 UNITS/ML SQ PRN ×4 (06:55→20:50)
[2018-03-21 06:59] LABS: GLUCOMETER DEV NAME(LOC) BV2X.; GLUCOSE,POINT OF CARE 272 MG/DL (70-110)
[2018-03-21] MEDS: LISINOPRIL 10 MG TABLET PO SCH (08:18)
[2018-03-21] MEDS: OMEGA-3/DHA/EPA/FISH OIL 1,000 MG CAPSULE PO SCH (08:18)
[2018-03-21] MEDS: ASENAPINE 10 MG SUBLINGUAL TABLET SL SCH ×2 (08:19→20:43)
[2018-03-21 09:07] VITALS: BP 119/86
[2018-03-21 11:18] LABS: GLUCOMETER DEV NAME(LOC) BV2X.; GLUCOSE,POINT OF CARE 225 MG/DL (70-110)
[2018-03-21] MEDS: MAGNESIUM HYDROXIDE SUSPENSION 30 ML UDCUP PO PRN (15:02)
[2018-03-21 16:53] LABS: GLUCOMETER DEV NAME(LOC) BV2X.; GLUCOSE,POINT OF CARE 350 MG/DL (70-110)
[2018-03-21 17:32] VITALS: BP 112/66
[2018-03-21 20:39] LABS: GLUCOMETER DEV NAME(LOC) BV2X.; GLUCOSE,POINT OF CARE 268 MG/DL (70-110)
[2018-03-21] MEDS: SIMVASTATIN 40 MG TABLET PO SCH (20:42)
[2018-03-21] MEDS: INSULIN GLARGINE,HUM.REC.ANLOG 100 UNITS/ML SQ SCH (20:51)
[2018-03-22 00:55] VITALS: BP 131/82
[2018-03-22] MEDS: INSULIN LISPRO 100 UNITS/ML SQ PRN ×4 (06:47→21:25)
[2018-03-22 07:09] LABS: GLUCOMETER DEV NAME(LOC) BV2X.; GLUCOSE,POINT OF CARE 287 MG/DL (70-110)
[2018-03-22] MEDS: OMEGA-3/DHA/EPA/FISH OIL 1,000 MG CAPSULE PO SCH (08:21)
[2018-03-22] MEDS: ASENAPINE 10 MG SUBLINGUAL TABLET SL SCH ×2 (08:22→21:10)
[2018-03-22] MEDS: LISINOPRIL 10 MG TABLET PO SCH (08:22)
[2018-03-22 08:34] VITALS: BP 117/90
[2018-03-22 11:09] LABS: GLUCOMETER DEV NAME(LOC) BV2X.; GLUCOSE,POINT OF CARE 366 MG/DL (70-110)
[2018-03-22] MEDS: MAGNESIUM HYDROXIDE SUSPENSION 30 ML UDCUP PO PRN (12:42)
[2018-03-22 16:12] VITALS: BP 110/64
[2018-03-22 17:34] LABS: GLUCOMETER DEV NAME(LOC) BV2X.; GLUCOSE,POINT OF CARE 307 MG/DL (70-110)
[2018-03-22] MEDS ORDERED: INSULIN GLARGINE,HUM.REC.ANLOG 100 UNITS/ML SQ SCH (21:00)
[2018-03-22] MEDS: SIMVASTATIN 40 MG TABLET PO SCH (21:10)
[2018-03-22 21:34] LABS: GLUCOMETER DEV NAME(LOC) BV2X.; GLUCOSE,POINT OF CARE 273 MG/DL (70-110)
[2018-03-23 04:05] VITALS: BP 120/81
[2018-03-23] MEDS: INSULIN LISPRO 100 UNITS/ML SQ PRN ×2 (06:32→11:30)
[2018-03-23 07:19] LABS: GLUCOMETER DEV NAME(LOC) BV2X.; GLUCOSE,POINT OF CARE 323 MG/DL (70-110)
[2018-03-23 08:26] VITALS: BP 116/69
[2018-03-23] MEDS: LISINOPRIL 10 MG TABLET PO SCH (10:18)
[2018-03-23] MEDS: OMEGA-3/DHA/EPA/FISH OIL 1,000 MG CAPSULE PO SCH (10:18)
[2018-03-23] MEDS: ASENAPINE 10 MG SUBLINGUAL TABLET SL SCH (10:18)
[2018-03-23] MEDS: MAGNESIUM HYDROXIDE SUSPENSION 30 ML UDCUP PO PRN (10:19)
[2018-03-23 11:14] LABS: GLUCOMETER DEV NAME(LOC) BV2X.; GLUCOSE,POINT OF CARE 174 MG/DL (70-110)
[2018-03-23] MEDS ORDERED: INSLAN SQ (11:59)
== END 2018-03-23 14:00 | disposition home or self-care (01) | DRG 750 ==
LOC: B3A 22:56 → B2S 03-19 21:19
PROVIDERS: ADMIT Psychiatry & Neurology Psychiatry; ATTEND Psychiatry & Neurology Psychiatry
DX: F25.9 Schizoaffective disorder, unspecified (principal); E10.9 Type 1 diabetes mellitus without complications; E55.9 Vitamin D deficiency, unspecified; E78.5 Hyperlipidemia, unspecified; F10.10 Alcohol abuse, uncomplicated; F17.200 Nicotine dependence, unspecified, uncomplicated; F32.9 Major depressive disorder, single episode, unspecified; I10 Essential (primary) hypertension; K21.9 Gastro-esophageal reflux disease without esophagitis; J45.909 Unspecified asthma, uncomplicated; Z88.8 Allergy status to other drugs, medicaments and biological substances; Z79.4 Long term (current) use of insulin
CPT/HCPCS: 83036; 84439; 84443; 90732; J1815

== ENCOUNTER 2018-06-07 17:36 | Inpatient (IN) | payer MEDICAID ==
[~2018-06-07] VITALS: Ht 160 cm; Wt 79.2 kg
[~2018-06-07 17:36] MED LIST changes: -BIMA12.5OS OU; -BRINOS OU; +INSLAN SQ
[2018-06-07] MEDS ORDERED: PROMETHAZINE HCL 25 MG TABLET PO PRN (17:45)
[2018-06-07] MEDS ORDERED: GuaiFENesin/D-METHORPHAN [SUGAR-FREE] 200-20MG/10 ML SYRUP UDCUP PO PRN (17:45)
[2018-06-07] MEDS ORDERED: HydrOXYzine PAMOATE 50 MG CAPSULE PO PRN (17:45)
[2018-06-07] MEDS ORDERED: TUBERCULIN, PURIFIED PROTEIN DERIVATIVE 5 TU/0.1 ML SYRINGE ID ONE (17:45)
[2018-06-07] MEDS ORDERED: QUEtiapine FUMARATE 100 MG TABLET PO PRN (17:45)
[2018-06-07] MEDS ORDERED: ZOLPIDEM TARTRATE 10 MG TABLET PO PRN (17:45)
[2018-06-07 18:18] VITALS: BP 124/60
[2018-06-07] MEDS ORDERED: PNEUMOCOCCAL VACCINE POLYVALENT 0.5 ML VIAL [PPSV23] IM ONE (18:30)
[2018-06-07] MEDS ORDERED: GLUCAGON,HUMAN RECOMBINANT 1 MG VIAL IM PRN (19:15)
[2018-06-07] MEDS: INSULIN LISPRO 100 UNITS/ML SQ PRN (21:38)
[2018-06-07 21:40] LABS: GLUCOMETER DEV NAME(LOC) BV2X.; GLUCOSE,POINT OF CARE 317 MG/DL (70-110)
[2018-06-07] MEDS: THIAMINE HCL 100 MG TABLET PO SCH (22:22)
[2018-06-07] MEDS: ASENAPINE 10 MG SUBLINGUAL TABLET SL SCH (22:22)
[2018-06-08 00:09] VITALS: BP 102/76
[2018-06-08 06:25] LABS: GLUCOMETER DEV NAME(LOC) BV2X.; GLUCOSE,POINT OF CARE 212 MG/DL (70-110)
[2018-06-08] MEDS: INSULIN LISPRO 100 UNITS/ML SQ PRN ×4 (07:04→21:04)
[2018-06-08 08:18] VITALS: BP 102/62
[2018-06-08 08:53] LABS: BASOPHILS % (AUTO) 0.4 % (0.0-2.0); HEMATOCRIT 46.4 % (41-53); HEMOGLOBIN 15.5 g/dL (13.5-17.5); LYMPHOCYTES # (AUTO) 2.6 K/uL (1.0-4.8); LYMPHOCYTES % (AUTO) 36.5 % (22.0-44.0); MEAN CORPUSCULAR HEMOGLOBIN 29.7 pg (26.0-34.0); MEAN CORPUSCULAR HGB CONC 33.5 G/dL (31.0-37.0); MEAN CORPUSCULAR VOLUME 89 fL (80-100); MONOCYTES # (AUTO) 0.6 K/uL (0.1-1.0); MONOCYTES % (AUTO) 8.9 % (2.0-9.0); NEUTROPHILS # (AUTO) 3.7 K/uL (1.8-7.7); NEUTROPHILS % (AUTO) 51.2 % (40.0-70.0); PLATELET COUNT (AUTO) 208 K/uL (150-450); RED BLOOD CELL COUNT(AUTO) 5.24 MIL/uL (4.50-5.90); RED CELL DISTRIBUTION WIDTH 12.4 % (11.5-14.5)
[2018-06-08] MEDS: MULTIVITAMINS WITH MINERALS, THERAPEUTIC TABLET PO SCH (08:54)
[2018-06-08] MEDS: THIAMINE HCL 100 MG TABLET PO SCH ×2 (08:54→16:56)
[2018-06-08] MEDS: ASENAPINE 10 MG SUBLINGUAL TABLET SL SCH ×2 (08:54→20:39)
[2018-06-08 09:06] LABS: HEMOGLOBIN A1C 7.3 % (4.5-6.2)
[2018-06-08] MEDS: LISINOPRIL 10 MG TABLET PO SCH (09:11)
[2018-06-08] MEDS: FOLIC ACID 1 MG TABLET PO SCH (09:12)
[2018-06-08] MEDS: OMEGA-3/DHA/EPA/FISH OIL 1,000 MG CAPSULE PO SCH (09:24)
[2018-06-08 09:28] LABS: CARBON DIOXIDE 25 mmol/L (22-29); CHLORIDE 106 mmol/L (98-107); POTASSIUM 3.8 mmol/L (3.5-5.1); SODIUM SERUM 141 mmol/L (136-145)
[2018-06-08 09:29] LABS: ALANINE AMINOTRANSFERASE 16 U/L (12-78); ALBUMIN 3.3 g/dL (3.4-5.0); ALKALINE PHOSPHATASE 92 U/L (46-116); ANION GAP 10 mmol/L (8-16); ASPARTATE AMINOTRANSFERASE 12 U/L (15-37); BILIRUBIN,TOTAL 0.6 mg/dL (0.1-1.0); CALCIUM, TOTAL 8.5 mg/dL (8.8-10.5); CHOL/HDL RATIO 3.2 (4.2-7.3); CHOLESTEROL 181 mg/dL (131-200); CREATININE 0.78 mg/dL (0.60-1.30); FREE T4 (FREE THYROXINE) 0.82 ng/dL (0.76-1.46); GLOMERULAR FILTR. RATE CALC > 60 mL/min (>60); GLUCOSE,RANDOM 215 mg/dL (70-110); HDL CHOLESTEROL 56 mg/dL (40-60); LDL CHOL (CALC.) 94 mg/dL (0-130); THYROID STIMULATING HORMONE 1.43 uIU/mL (0.36-3.74); TOTAL PROTEIN, SERUM 6.2 g/dL (6.4-8.2); TRIGLYCERIDES 154 mg/dL (15-150); UREA NITROGEN, BLOOD 10 mg/dL (7-18)
[2018-06-08 10:28] LABS: GLUCOMETER DEV NAME(LOC) BV2X.; GLUCOSE,POINT OF CARE 287 MG/DL (70-110)
[2018-06-08] MEDS ORDERED: ASEN10TA8 SL (15:25)
[2018-06-08] MEDS ORDERED: OMEG-135 PO (15:25)
[2018-06-08 16:09] VITALS: BP 117/68
[2018-06-08 17:04] LABS: GLUCOMETER DEV NAME(LOC) BV2X.; GLUCOSE,POINT OF CARE 254 MG/DL (70-110)
[2018-06-08] MEDS ORDERED: INSULIN LISPRO 100 UNITS/ML SQ PRN (20:45)
[2018-06-08] MEDS ORDERED: SIMVASTATIN 40 MG TABLET PO SCH (21:00)
[2018-06-08] MEDS ORDERED: INSULIN GLARGINE,HUM.REC.ANLOG 100 UNITS/ML SQ SCH ×2 (21:00)
[2018-06-08 22:34] LABS: GLUCOMETER DEV NAME(LOC) BV2X.; GLUCOSE,POINT OF CARE 407 MG/DL (70-110)
[2018-06-08 23:39] VITALS: BP 121/87
[2018-06-08] MEDS: LORazepam 2 MG TABLET PO PRN (23:42)
[2018-06-08 23:49] LABS: GLUCOMETER DEV NAME(LOC) BV2X.; GLUCOSE,POINT OF CARE 331 MG/DL (70-110)
[2018-06-09 00:17] VITALS: BP 118/82
[2018-06-09] MEDS ORDERED: METF-960 PO (03:57)
[2018-06-09] MEDS ORDERED: THIA100T67 PO (03:57)
[2018-06-09] MEDS ORDERED: FOLI1 PO (03:57)
[2018-06-09] MEDS ORDERED: MULT-1239 PO (03:59)
[2018-06-09] MEDS ORDERED: MetFORMIN HCL 500 MG TABLET PO SCH (07:00)
[2018-06-09] MEDS: INSULIN LISPRO 100 UNITS/ML SQ PRN ×2 (07:15→11:18)
[2018-06-09 07:19] LABS: GLUCOMETER DEV NAME(LOC) BV2X.; GLUCOSE,POINT OF CARE 212 MG/DL (70-110)
[2018-06-09 08:07] VITALS: BP 118/65
[2018-06-09] MEDS: FOLIC ACID 1 MG TABLET PO SCH (08:15)
[2018-06-09] MEDS: THIAMINE HCL 100 MG TABLET PO SCH (08:15)
[2018-06-09] MEDS: LISINOPRIL 10 MG TABLET PO SCH (08:15)
[2018-06-09] MEDS: ASENAPINE 10 MG SUBLINGUAL TABLET SL SCH (08:15)
[2018-06-09] MEDS: MULTIVITAMINS WITH MINERALS, THERAPEUTIC TABLET PO SCH (08:15)
[2018-06-09] MEDS: OMEGA-3/DHA/EPA/FISH OIL 1,000 MG CAPSULE PO SCH (08:20)
[2018-06-09] MEDS: LORazepam 2 MG TABLET PO PRN (08:22)
[2018-06-09 11:30] LABS: GLUCOMETER DEV NAME(LOC) BV2X.; GLUCOSE,POINT OF CARE 369 MG/DL (70-110)
[2018-06-09] MEDS ORDERED: INSULIN GLARGINE,HUM.REC.ANLOG 100 UNITS/ML SQ SCH (21:00)
== END 2018-06-09 13:45 | disposition home or self-care (01) | DRG 750 ==
LOC: B2S 17:52
PROVIDERS: ADMIT Psychiatry & Neurology Psychiatry; ATTEND Psychiatry & Neurology Psychiatry
PROC: 3E0234Z Introduction of Serum, Toxoid and Vaccine into Muscle, Percutaneous Approach (ICD-10-PCS; principal; 2018-06-07)
DX: F25.1 Schizoaffective disorder, depressive type (principal); E10.9 Type 1 diabetes mellitus without complications; R45.851 Suicidal ideations; E78.5 Hyperlipidemia, unspecified; F84.0 Autistic disorder; G89.29 Other chronic pain; M54.9 Dorsalgia, unspecified; H40.9 Unspecified glaucoma; F12.90 Cannabis use, unspecified, uncomplicated; I10 Essential (primary) hypertension; Z82.3 Family history of stroke; Z82.49 Family history of ischemic heart disease and other diseases of the circulatory system; Z88.2 Allergy status to sulfonamides; Z91.19 Patient's noncompliance with other medical treatment and regimen; Z23 Encounter for immunization; Z79.899 Other long term (current) drug therapy; Z79.4 Long term (current) use of insulin; Z88.8 Allergy status to other drugs, medicaments and biological substances
CPT/HCPCS: 83036; 84439; 84443; 86592; 86780; 87081; 90732; J1815

== ENCOUNTER 2019-02-05 07:54 | Inpatient (IN) | payer MEDICAID ==
[~2019-02-05] VITALS: Ht 160 cm; Wt 172.0 kg
[~2019-02-05 07:54] MED LIST changes: +FOLI1 PO; +METF-960 PO; +MULT-1239 PO; +THIA100T67 PO
[2019-02-05 13:49] VITALS: BP 109/70
[2019-02-05] MEDS ORDERED: TRAZ-252 PO (13:56)
[2019-02-05] MEDS ORDERED: QUET25TA PO (13:56)
[2019-02-05] MEDS ORDERED: PROMETHAZINE HCL 25 MG TABLET PO PRN (14:30)
[2019-02-05] MEDS ORDERED: MAGNESIUM HYDROXIDE SUSPENSION 30 ML UDCUP PO PRN (14:30)
[2019-02-05] MEDS ORDERED: MAG HYDROX/AL HYDROX/SIMETH ES 30 ML SUSPENSION UDCUP PO PRN (14:30)
[2019-02-05] MEDS ORDERED: ACETAMINOPHEN 325 MG TABLET PO PRN (14:30)
[2019-02-05] MEDS ORDERED: GuaiFENesin/D-METHORPHAN [SUGAR-FREE] 200-20MG/10 ML SYRUP UDCUP PO PRN (14:30)
[2019-02-05] MEDS ORDERED: LOPERAMIDE HCL 2 MG CAPSULE PO PRN (14:30)
[2019-02-05] MEDS ORDERED: HydrOXYzine PAMOATE 50 MG CAPSULE PO PRN (14:30)
[2019-02-05] MEDS ORDERED: QUEtiapine FUMARATE 100 MG TABLET PO PRN (14:30)
[2019-02-05] MEDS ORDERED: INFLUENZA VIRUS VACCINE QVS 2019-20 (3YR+)/PF 60 MCG/0.5 ML SYRINGE IM ONE (16:15)
[2019-02-05 17:25] VITALS: BP 96/59
[2019-02-05] MEDS: THIAMINE HCL 100 MG TABLET PO SCH (18:18)
[2019-02-05] MEDS: ASENAPINE 5 MG SUBLINGUAL TABLET SL SCH (18:19)
[2019-02-05] MEDS ORDERED: INSULIN LISPRO 100 UNITS/ML SQ PRN (18:30)
[2019-02-05] MEDS ORDERED: GLUCAGON,HUMAN RECOMBINANT 1 MG VIAL IM PRN (18:30)
[2019-02-05 18:56] LABS: GLUCOMETER DEV NAME(LOC) BV2S.; GLUCOSE,POINT OF CARE 549 MG/DL (70-110)
[2019-02-05] MEDS: INSULIN LISPRO 100 UNITS/ML SQ PRN (20:07)
[2019-02-05] MEDS: LISINOPRIL 20 MG TABLET PO SCH (20:22)
[2019-02-05] MEDS ORDERED: TraZODone HCL 50 MG TABLET PO SCH (21:00)
[2019-02-05] MEDS: INSULIN GLARGINE,HUM.REC.ANLOG 100 UNITS/ML SQ SCH (21:06)
[2019-02-05] MEDS: SIMVASTATIN 40 MG TABLET PO SCH (21:15)
[2019-02-05 23:37] LABS: GLUCOMETER DEV NAME(LOC) BV2S.; GLUCOSE,POINT OF CARE 301 MG/DL (70-110)
[2019-02-06 00:16] VITALS: BP 122/72
[2019-02-06 06:40] LABS: GLUCOMETER DEV NAME(LOC) BV2S.; GLUCOSE,POINT OF CARE 183 MG/DL (70-110)
[2019-02-06] MEDS: INSULIN LISPRO 100 UNITS/ML SQ PRN ×3 (06:46→21:15)
[2019-02-06 07:47] LABS: BASOPHILS % (AUTO) 0.9 % (0.0-2.0); EOSINOPHILS % (AUTO) 2.8 % (1.0-6.0); HEMATOCRIT 45.2 % (41-53); HEMOGLOBIN 15.6 g/dL (13.5-17.5); LYMPHOCYTES # (AUTO) 2.6 K/uL (1.0-4.8); LYMPHOCYTES % (AUTO) 39.6 % (22.0-44.0); MEAN CORPUSCULAR HEMOGLOBIN 30.3 pg (26.0-34.0); MEAN CORPUSCULAR HGB CONC 34.6 G/dL (31.0-37.0); MEAN CORPUSCULAR VOLUME 88 fL (80-100); MONOCYTES # (AUTO) 0.6 K/uL (0.1-1.0); MONOCYTES % (AUTO) 9.1 % (2.0-9.0); NEUTROPHILS # (AUTO) 3.1 K/uL (1.8-7.7); NEUTROPHILS % (AUTO) 47.6 % (40.0-70.0); PLATELET COUNT (AUTO) 193 K/uL (150-450); RED BLOOD CELL COUNT(AUTO) 5.16 MIL/uL (4.50-5.90); RED CELL DISTRIBUTION WIDTH 12.6 % (11.5-14.5)
[2019-02-06] MEDS: NALTREXONE HCL 50 MG TABLET PO SCH (08:05)
[2019-02-06] MEDS: THIAMINE HCL 100 MG TABLET PO SCH ×2 (08:05→16:40)
[2019-02-06] MEDS: ASENAPINE 5 MG SUBLINGUAL TABLET SL SCH ×2 (08:06→16:40)
[2019-02-06] MEDS: MULTIVITAMINS WITH MINERALS, THERAPEUTIC TABLET PO SCH (08:06)
[2019-02-06] MEDS: FOLIC ACID 1 MG TABLET PO SCH (08:06)
[2019-02-06 08:13] VITALS: BP 130/84
[2019-02-06 08:18] LABS: APPEARANCE,URINE CLEAR (CLEAR); BILIRUBIN,URINE NEGATIVE (NEGATIVE); GLUCOSE, URINE (UA) 500 mg/dL (NEGATIVE); KETONES,URINE NEGATIVE (NEGATIVE); LEUKOCYTE ESTERASE ,URINE NEGATIVE (NEGATIVE); NITRATE,URINE NEGATIVE (NEGATIVE); OCCULT BLOOD,URINE NEGATIVE (NEGATIVE); PROTEIN,URINE NEGATIVE (NEGATIVE); UROBILINOGEN,URINE 0.2 mg/dL (<=1.0)
[2019-02-06 08:24] LABS: HEMOGLOBIN A1C 7.2 % (4.5-6.2)
[2019-02-06 08:27] LABS: AMPHET/METH SCREEN,URINE NEGATIVE (NEGATIVE); BARBITURATE SCREEN, URINE NEGATIVE (NEGATIVE); BENZODIAZEPINES SCREEN,URINE NEGATIVE (NEGATIVE); CANNABINOID SCREEN,URINE NEGATIVE (NEGATIVE); COCAINE SCREEN,URINE NEGATIVE (NEGATIVE); METHADONE SCREEN, URINE NEGATIVE (NEGATIVE); OPIATE SCREEN,URINE NEGATIVE (NEGATIVE)
[2019-02-06 08:28] LABS: PHENCYCLIDINE SCREEN,URINE NEGATIVE (NEGATIVE)
[2019-02-06 08:32] LABS: ALANINE AMINOTRANSFERASE 23 U/L (12-78); ALBUMIN 3.3 g/dL (3.4-5.0); ALKALINE PHOSPHATASE 115 U/L (46-116); ANION GAP 6 mmol/L (8-16); ASPARTATE AMINOTRANSFERASE 10 U/L (15-37); BILIRUBIN,TOTAL 0.4 mg/dL (0.1-1.0); CALCIUM, TOTAL 8.6 mg/dL (8.8-10.5); CARBON DIOXIDE 29 mmol/L (22-29); CHLORIDE 105 mmol/L (98-107); CHOL/HDL RATIO 2.9 (4.2-7.3); CHOLESTEROL 177 mg/dL (131-200); CREATININE 0.98 mg/dL (0.60-1.30); FREE T4 (FREE THYROXINE) 0.76 ng/dL (0.76-1.46); GLOMERULAR FILTR. RATE CALC > 60 mL/min (>60); GLUCOSE,RANDOM 207 mg/dL (70-110); HDL CHOLESTEROL 62 mg/dL (40-60); LDL CHOL (CALC.) 88 mg/dL (0-130); POTASSIUM 3.9 mmol/L (3.5-5.1); SODIUM SERUM 140 mmol/L (136-145); THYROID STIMULATING HORMONE 1.03 uIU/mL (0.36-3.74); TRIGLYCERIDES 133 mg/dL (15-150)
[2019-02-06 08:34] LABS: BACTERIA,URINE None Seen /HPF (None Seen); RBC,URINE None Seen /HPF (0-2); WBC,URINE None Seen /HPF (0-5)
[2019-02-06 08:44] LABS: TOTAL PROTEIN, SERUM 6.3 g/dL (6.4-8.2); UREA NITROGEN, BLOOD 11 mg/dL (7-18)
[2019-02-06 11:00] LABS: GLUCOMETER DEV NAME(LOC) BV2S.; GLUCOSE,POINT OF CARE 322 MG/DL (70-110)
[2019-02-06 16:31] VITALS: BP 126/66
[2019-02-06 17:10] LABS: GLUCOMETER DEV NAME(LOC) BV2S.; GLUCOSE,POINT OF CARE 184 MG/DL (70-110)
[2019-02-06] MEDS: LISINOPRIL 20 MG TABLET PO SCH (20:40)
[2019-02-06] MEDS: SIMVASTATIN 40 MG TABLET PO SCH (20:40)
[2019-02-06 20:45] LABS: GLUCOMETER DEV NAME(LOC) BV2S.; GLUCOSE,POINT OF CARE 352 MG/DL (70-110)
[2019-02-06] MEDS: INSULIN GLARGINE,HUM.REC.ANLOG 100 UNITS/ML SQ SCH (21:15)
[2019-02-07] MEDS: LORazepam 2 MG TABLET PO PRN ×2 (00:12→20:31)
[2019-02-07 00:21] VITALS: BP 126/77
[2019-02-07 06:40] LABS: GLUCOMETER DEV NAME(LOC) BV2S.; GLUCOSE,POINT OF CARE 272 MG/DL (70-110)
[2019-02-07] MEDS: INSULIN LISPRO 100 UNITS/ML SQ PRN ×4 (06:46→20:08)
[2019-02-07] MEDS: ASENAPINE 5 MG SUBLINGUAL TABLET SL SCH ×2 (08:19→17:20)
[2019-02-07] MEDS: THIAMINE HCL 100 MG TABLET PO SCH ×2 (08:19→16:20)
[2019-02-07] MEDS: MULTIVITAMINS WITH MINERALS, THERAPEUTIC TABLET PO SCH (08:19)
[2019-02-07] MEDS: FOLIC ACID 1 MG TABLET PO SCH (08:19)
[2019-02-07] MEDS: NALTREXONE HCL 50 MG TABLET PO SCH (08:27)
[2019-02-07] MEDS: DULoxetine HCL 20 MG CAPSULE PO SCH (08:28)
[2019-02-07 08:37] VITALS: BP 103/61
[2019-02-07 11:09] LABS: GLUCOMETER DEV NAME(LOC) BV2S.; GLUCOSE,POINT OF CARE 157 MG/DL (70-110)
[2019-02-07 16:06] VITALS: BP 111/67
[2019-02-07 16:46] LABS: GLUCOMETER DEV NAME(LOC) BV2S.; GLUCOSE,POINT OF CARE 306 MG/DL (70-110)
[2019-02-07] MEDS: LISINOPRIL 20 MG TABLET PO SCH (20:05)
[2019-02-07] MEDS: SIMVASTATIN 40 MG TABLET PO SCH (20:05)
[2019-02-07] MEDS: INSULIN GLARGINE,HUM.REC.ANLOG 100 UNITS/ML SQ SCH (20:07)
[2019-02-07 20:27] LABS: GLUCOMETER DEV NAME(LOC) BV2S.; GLUCOSE,POINT OF CARE 341 MG/DL (70-110)
[2019-02-08 01:32] VITALS: BP 110/70
[2019-02-08 06:23] LABS: GLUCOMETER DEV NAME(LOC) BV2S.; GLUCOSE,POINT OF CARE 121 MG/DL (70-110)
[2019-02-08] MEDS: INSULIN LISPRO 100 UNITS/ML SQ PRN ×4 (06:59→21:24)
[2019-02-08] MEDS: ASENAPINE 5 MG SUBLINGUAL TABLET SL SCH ×2 (08:14→16:14)
[2019-02-08] MEDS: MULTIVITAMINS WITH MINERALS, THERAPEUTIC TABLET PO SCH (08:14)
[2019-02-08] MEDS: FOLIC ACID 1 MG TABLET PO SCH (08:14)
[2019-02-08] MEDS: DULoxetine HCL 20 MG CAPSULE PO SCH (08:14)
[2019-02-08] MEDS: THIAMINE HCL 100 MG TABLET PO SCH ×2 (08:14→16:14)
[2019-02-08] MEDS: NALTREXONE HCL 50 MG TABLET PO SCH (08:18)
[2019-02-08 08:41] VITALS: BP_SYST 106; BP_DIAS 56; BP_DIAS 66
[2019-02-08 11:14] LABS: GLUCOMETER DEV NAME(LOC) BV2S.; GLUCOSE,POINT OF CARE 217 MG/DL (70-110)
[2019-02-08] MEDS ORDERED: DULO20CA30 PO (15:10)
[2019-02-08] MEDS ORDERED: ASEN5TAB6 SL (15:10)
[2019-02-08] MEDS ORDERED: NALT50TA PO (15:10)
[2019-02-08 16:00] VITALS: BP 106/67
[2019-02-08 16:36] LABS: GLUCOMETER DEV NAME(LOC) BV2S.; GLUCOSE,POINT OF CARE 254 MG/DL (70-110)
[2019-02-08 20:32] LABS: GLUCOMETER DEV NAME(LOC) BV2S.; GLUCOSE,POINT OF CARE 200 MG/DL (70-110)
[2019-02-08] MEDS ORDERED: INSULIN GLARGINE,HUM.REC.ANLOG 100 UNITS/ML SQ SCH (21:00)
[2019-02-08] MEDS: LISINOPRIL 20 MG TABLET PO SCH (21:19)
[2019-02-08] MEDS: SIMVASTATIN 40 MG TABLET PO SCH (21:19)
[2019-02-08] MEDS: LORazepam 2 MG TABLET PO PRN (22:26)
[2019-02-08 22:38] LABS: GLUCOMETER DEV NAME(LOC) BV2S.; GLUCOSE,POINT OF CARE 220 MG/DL (70-110)
[2019-02-09 00:03] VITALS: BP 127/77
[2019-02-09 06:32] LABS: GLUCOMETER DEV NAME(LOC) BV2S.; GLUCOSE,POINT OF CARE 260 MG/DL (70-110)
[2019-02-09] MEDS: INSULIN LISPRO 100 UNITS/ML SQ PRN ×2 (06:49→11:03)
[2019-02-09] MEDS: THIAMINE HCL 100 MG TABLET PO SCH (08:23)
[2019-02-09] MEDS: ASENAPINE 5 MG SUBLINGUAL TABLET SL SCH (08:23)
[2019-02-09] MEDS: FOLIC ACID 1 MG TABLET PO SCH (08:23)
[2019-02-09] MEDS: MULTIVITAMINS WITH MINERALS, THERAPEUTIC TABLET PO SCH (08:23)
[2019-02-09] MEDS: NALTREXONE HCL 50 MG TABLET PO SCH (08:26)
[2019-02-09 08:36] VITALS: BP 121/84
[2019-02-09] MEDS ORDERED: DULoxetine HCL 30 MG CAPSULE PO SCH (09:00)
[2019-02-09] MEDS ORDERED: INSLAN SQ (09:02)
[2019-02-09 11:17] LABS: GLUCOMETER DEV NAME(LOC) BV2S.; GLUCOSE,POINT OF CARE 187 MG/DL (70-110)
== END 2019-02-09 13:20 | disposition home or self-care (01) | DRG 750 ==
LOC: B2S 15:32
PROVIDERS: ADMIT Psychiatry & Neurology Psychiatry; ATTEND Psychiatry & Neurology Psychiatry
DX: F25.9 Schizoaffective disorder, unspecified (principal); M41.9 Scoliosis, unspecified; F12.90 Cannabis use, unspecified, uncomplicated; G89.29 Other chronic pain; F32.9 Major depressive disorder, single episode, unspecified; M54.9 Dorsalgia, unspecified; I10 Essential (primary) hypertension; E78.5 Hyperlipidemia, unspecified; E11.9 Type 2 diabetes mellitus without complications; Z28.21 Immunization not carried out because of patient refusal; Z88.8 Allergy status to other drugs, medicaments and biological substances; Z88.1 Allergy status to other antibiotic agents; Z82.3 Family history of stroke; Z82.49 Family history of ischemic heart disease and other diseases of the circulatory system; Z79.4 Long term (current) use of insulin; Z91.19 Patient's noncompliance with other medical treatment and regimen
CPT/HCPCS: 80307; 83036; 84439; 84443; 86592; 87081; J1815

== ENCOUNTER 2019-05-24 22:11 | Inpatient (IN) | payer MEDICAID ==
[~2019-05-24] VITALS: Ht 162.6 cm; Wt 78.2 kg
[~2019-05-24 22:11] MED LIST changes: -ASEN10TA8 SL; +ASEN5TAB6 SL; +DULO20CA30 PO; -FOLI1 PO; -METF-960 PO; -MULT-1239 PO; +NALT50TA PO; -OMEG-135 PO; -THIA100T67 PO
[2019-05-24] MEDS ORDERED: QUET25TA PO (22:23)
[2019-05-24] MEDS ORDERED: INFLUENZA VIRUS VACCINE QVS 2019-20 (3YR+)/PF 60 MCG/0.5 ML SYRINGE IM ONE (22:45)
[2019-05-24] MEDS ORDERED: QUEtiapine FUMARATE 100 MG TABLET PO PRN (22:45)
[2019-05-24 23:00] VITALS: BP 125/70
[2019-05-24 23:50] VITALS: BP 110/69
[2019-05-25 00:01] VITALS: BP 110/69
[2019-05-25 01:31] LABS: GLUCOMETER DEV NAME(LOC) BV2S.; GLUCOSE,POINT OF CARE 390 MG/DL (70-110)
[2019-05-25] MEDS ORDERED: INSULIN LISPRO 100 UNITS/ML SQ PRN ×2 (03:15→05:45)
[2019-05-25] MEDS ORDERED: GLUCAGON,HUMAN RECOMBINANT 1 MG VIAL IM PRN ×2 (03:15→05:45)
[2019-05-25 06:24] LABS: GLUCOMETER DEV NAME(LOC) BV2S.; GLUCOSE,POINT OF CARE 127 MG/DL (70-110)
[2019-05-25 06:29] VITALS: BP 105/72
[2019-05-25] MEDS: INSULIN LISPRO 100 UNITS/ML SQ PRN ×4 (06:34→20:28)
[2019-05-25 07:54] LABS: BASOPHILS % (AUTO) 0.7 % (0.0-2.0); HEMATOCRIT 45.1 % (41-53); HEMOGLOBIN 15.3 g/dL (13.5-17.5); LYMPHOCYTES # (AUTO) 3.1 K/uL (1.0-4.8); LYMPHOCYTES % (AUTO) 41.9 % (22.0-44.0); MEAN CORPUSCULAR HEMOGLOBIN 29.7 pg (26.0-34.0); MEAN CORPUSCULAR HGB CONC 33.9 G/dL (31.0-37.0); MEAN CORPUSCULAR VOLUME 88 fL (80-100); MONOCYTES # (AUTO) 0.6 K/uL (0.1-1.0); MONOCYTES % (AUTO) 8.6 % (2.0-9.0); NEUTROPHILS # (AUTO) 3.5 K/uL (1.8-7.7); NEUTROPHILS % (AUTO) 46.8 % (40.0-70.0); PLATELET COUNT (AUTO) 196 K/uL (150-450); RED BLOOD CELL COUNT(AUTO) 5.15 MIL/uL (4.50-5.90); RED CELL DISTRIBUTION WIDTH 12.6 % (11.5-14.5)
[2019-05-25 08:09] LABS: HEMOGLOBIN A1C 7.5 % (3.8-5.6)
[2019-05-25 08:12] VITALS: BP 112/61
[2019-05-25 08:25] LABS: ALANINE AMINOTRANSFERASE 19 U/L (12-78); ALBUMIN 3.8 g/dL (3.4-5.0); ALKALINE PHOSPHATASE 104 U/L (46-116); ANION GAP 6 mmol/L (8-16); ASPARTATE AMINOTRANSFERASE 12 U/L (15-37); BILIRUBIN,TOTAL 0.5 mg/dL (0.1-1.0); CALCIUM, TOTAL 8.7 mg/dL (8.8-10.5); CARBON DIOXIDE 30 mmol/L (22-29); CHLORIDE 105 mmol/L (98-107); CHOL/HDL RATIO 3.2 (4.2-7.3); CHOLESTEROL 159 mg/dL (131-200); CREATININE 0.79 mg/dL (0.60-1.30); FREE T4 (FREE THYROXINE) 0.88 ng/dL (0.76-1.46); GLOMERULAR FILTR. RATE CALC > 60 mL/min (>60); GLUCOSE,RANDOM 119 mg/dL (70-110); HDL CHOLESTEROL 49 mg/dL (40-60); LDL CHOL (CALC.) 71 mg/dL (0-130); POTASSIUM 3.4 mmol/L (3.5-5.1); SODIUM SERUM 141 mmol/L (136-145); TOTAL PROTEIN, SERUM 6.5 g/dL (6.4-8.2); TRIGLYCERIDES 196 mg/dL (15-150); UREA NITROGEN, BLOOD 13 mg/dL (7-18)
[2019-05-25] MEDS ORDERED: POTASSIUM CHLORIDE 20 MEQ ER TABLET PO ONE (08:45)
[2019-05-25] MEDS: LISINOPRIL 10 MG TABLET PO SCH (08:49)
[2019-05-25] MEDS ORDERED: GuaiFENesin/D-METHORPHAN [SUGAR-FREE] 200-20MG/10 ML SYRUP UDCUP PO PRN (10:30)
[2019-05-25] MEDS ORDERED: PROMETHAZINE HCL 25 MG TABLET PO PRN (10:30)
[2019-05-25] MEDS ORDERED: ACETAMINOPHEN 325 MG TABLET PO PRN (10:30)
[2019-05-25] MEDS ORDERED: HydrOXYzine PAMOATE 50 MG CAPSULE PO PRN (10:30)
[2019-05-25] MEDS ORDERED: LOPERAMIDE HCL 2 MG CAPSULE PO PRN (10:30)
[2019-05-25] MEDS ORDERED: MAGNESIUM HYDROXIDE SUSPENSION 30 ML UDCUP PO PRN (10:30)
[2019-05-25] MEDS ORDERED: MAG HYDROX/AL HYDROX/SIMETH ES 30 ML SUSPENSION UDCUP PO PRN (10:30)
[2019-05-25 11:58] LABS: GLUCOMETER DEV NAME(LOC) BV2S.; GLUCOSE,POINT OF CARE 168 MG/DL (70-110)
[2019-05-25] MEDS ORDERED: DULO30CA2 PO (14:14)
[2019-05-25] MEDS ORDERED: ASEN10TA8 SL (14:14)
[2019-05-25] MEDS: CHOLECALCIFEROL (VIT D3) 5,000 [125 MCG] UNITS CAPSULE PO SCH (15:50)
[2019-05-25 16:10] VITALS: BP 105/68
[2019-05-25] MEDS: THIAMINE HCL 100 MG TABLET PO SCH (16:28)
[2019-05-25] MEDS: ASENAPINE 5 MG SUBLINGUAL TABLET SL SCH (16:28)
[2019-05-25 16:53] LABS: GLUCOMETER DEV NAME(LOC) BV2S.; GLUCOSE,POINT OF CARE 306 MG/DL (70-110)
[2019-05-25] MEDS: SIMVASTATIN 40 MG TABLET PO SCH (20:15)
[2019-05-25 20:43] LABS: GLUCOMETER DEV NAME(LOC) BV2S.; GLUCOSE,POINT OF CARE 244 MG/DL (70-110)
[2019-05-25] MEDS ORDERED: QUEtiapine FUMARATE 25 MG TABLET PO SCH ×2 (21:00)
[2019-05-25] MEDS ORDERED: INSULIN GLARGINE,HUM.REC.ANLOG 100 UNITS/ML SQ SCH (21:00)
[2019-05-26 01:07] VITALS: BP 120/75
[2019-05-26] MEDS: LORazepam 2 MG TABLET PO PRN ×2 (03:39→22:17)
[2019-05-26 06:14] LABS: GLUCOMETER DEV NAME(LOC) BV2S.; GLUCOSE,POINT OF CARE 179 MG/DL (70-110)
[2019-05-26] MEDS: INSULIN LISPRO 100 UNITS/ML SQ PRN ×4 (06:35→20:35)
[2019-05-26 08:20] VITALS: BP 105/62
[2019-05-26] MEDS: CHOLECALCIFEROL (VIT D3) 5,000 [125 MCG] UNITS CAPSULE PO SCH (08:37)
[2019-05-26] MEDS: THIAMINE HCL 100 MG TABLET PO SCH ×2 (08:38→16:13)
[2019-05-26] MEDS: MULTIVITAMINS WITH MINERALS, THERAPEUTIC TABLET PO SCH (08:38)
[2019-05-26] MEDS: ASENAPINE 5 MG SUBLINGUAL TABLET SL SCH ×2 (08:38→16:13)
[2019-05-26] MEDS: FOLIC ACID 1 MG TABLET PO SCH (08:38)
[2019-05-26] MEDS: LISINOPRIL 10 MG TABLET PO SCH (08:38)
[2019-05-26] MEDS: DULoxetine HCL 20 MG CAPSULE PO SCH (08:44)
[2019-05-26] MEDS: NALTREXONE HCL 50 MG TABLET PO SCH (08:44)
[2019-05-26 12:35] LABS: GLUCOMETER DEV NAME(LOC) BV2S.; GLUCOSE,POINT OF CARE 307 MG/DL (70-110)
[2019-05-26 16:01] VITALS: BP 116/72
[2019-05-26 16:34] LABS: GLUCOMETER DEV NAME(LOC) BV2S.; GLUCOSE,POINT OF CARE 387 MG/DL (70-110)
[2019-05-26] MEDS: SIMVASTATIN 40 MG TABLET PO SCH (20:25)
[2019-05-26 20:57] LABS: GLUCOMETER DEV NAME(LOC) BV2S.; GLUCOSE,POINT OF CARE 250 MG/DL (70-110)
[2019-05-26] MEDS ORDERED: INSULIN GLARGINE,HUM.REC.ANLOG 100 UNITS/ML SQ SCH (21:00)
[2019-05-27 00:34] VITALS: BP 113/81
[2019-05-27 07:12] LABS: GLUCOMETER DEV NAME(LOC) BV2S.; GLUCOSE,POINT OF CARE 39 MG/DL (70-110)
[2019-05-27 07:12] LABS: GLUCOMETER DEV NAME(LOC) BV2S.; GLUCOSE,POINT OF CARE 124 MG/DL (70-110)
[2019-05-27 08:05] LABS: GLUCOMETER DEV NAME(LOC) BV2S.; GLUCOSE,POINT OF CARE 321 MG/DL (70-110)
[2019-05-27] MEDS: INSULIN LISPRO 100 UNITS/ML SQ PRN ×4 (08:10→20:40)
[2019-05-27 08:20] VITALS: BP 129/67
[2019-05-27] MEDS: NALTREXONE HCL 50 MG TABLET PO SCH (09:00)
[2019-05-27] MEDS: DULoxetine HCL 20 MG CAPSULE PO SCH (09:00)
[2019-05-27] MEDS: THIAMINE HCL 100 MG TABLET PO SCH ×2 (09:01→16:32)
[2019-05-27] MEDS: ASENAPINE 5 MG SUBLINGUAL TABLET SL SCH ×2 (09:01→16:32)
[2019-05-27] MEDS: MULTIVITAMINS WITH MINERALS, THERAPEUTIC TABLET PO SCH (09:01)
[2019-05-27] MEDS: FOLIC ACID 1 MG TABLET PO SCH (09:01)
[2019-05-27] MEDS: CHOLECALCIFEROL (VIT D3) 5,000 [125 MCG] UNITS CAPSULE PO SCH (09:01)
[2019-05-27] MEDS: LISINOPRIL 10 MG TABLET PO SCH (09:02)
[2019-05-27 09:09] LABS: GLUCOMETER DEV NAME(LOC) BV2S.; GLUCOSE,POINT OF CARE 332 MG/DL (70-110)
[2019-05-27 09:22] VITALS: BP 120/74
[2019-05-27 11:24] LABS: GLUCOMETER DEV NAME(LOC) BV2S.; GLUCOSE,POINT OF CARE 173 MG/DL (70-110)
[2019-05-27 16:50] VITALS: BP 116/73
[2019-05-27 16:53] LABS: GLUCOMETER DEV NAME(LOC) BV2S.; GLUCOSE,POINT OF CARE 225 MG/DL (70-110)
[2019-05-27] MEDS: SIMVASTATIN 40 MG TABLET PO SCH (20:26)
[2019-05-27] MEDS: INSULIN GLARGINE,HUM.REC.ANLOG 100 UNITS/ML SQ SCH (20:41)
[2019-05-27] MEDS ORDERED: INSULIN GLARGINE,HUM.REC.ANLOG 100 UNITS/ML SQ SCH (21:00)
[2019-05-27] MEDS: LORazepam 2 MG TABLET PO PRN (21:02)
[2019-05-27 22:00] LABS: GLUCOMETER DEV NAME(LOC) BV2S.; GLUCOSE,POINT OF CARE 352 MG/DL (70-110)
[2019-05-28 00:52] VITALS: BP 111/75
[2019-05-28] MEDS: ZOLPIDEM TARTRATE 10 MG TABLET PO PRN (01:22)
[2019-05-28 05:59] LABS: GLUCOMETER DEV NAME(LOC) BV2S.; GLUCOSE,POINT OF CARE 304 MG/DL (70-110)
[2019-05-28] MEDS: INSULIN LISPRO 100 UNITS/ML SQ PRN ×4 (06:31→21:01)
[2019-05-28 07:52] LABS: ALANINE AMINOTRANSFERASE 21 U/L (12-78); ALBUMIN 3.6 g/dL (3.4-5.0); ALKALINE PHOSPHATASE 115 U/L (46-116); ANION GAP 6 mmol/L (8-16); ASPARTATE AMINOTRANSFERASE 9 U/L (15-37); BILIRUBIN,TOTAL 0.5 mg/dL (0.1-1.0); CALCIUM, TOTAL 8.8 mg/dL (8.8-10.5); CARBON DIOXIDE 28 mmol/L (22-29); CHLORIDE 102 mmol/L (98-107); CREATININE 0.86 mg/dL (0.60-1.30); GLOMERULAR FILTR. RATE CALC > 60 mL/min (>60); GLUCOSE,RANDOM 336 mg/dL (70-110); POTASSIUM 4.1 mmol/L (3.5-5.1); SODIUM SERUM 136 mmol/L (136-145); TOTAL PROTEIN, SERUM 6.6 g/dL (6.4-8.2); UREA NITROGEN, BLOOD 14 mg/dL (7-18)
[2019-05-28 08:12] VITALS: BP 116/65
[2019-05-28] MEDS: DULoxetine HCL 20 MG CAPSULE PO SCH (09:00)
[2019-05-28] MEDS: NALTREXONE HCL 50 MG TABLET PO SCH (09:00)
[2019-05-28] MEDS: CHOLECALCIFEROL (VIT D3) 5,000 [125 MCG] UNITS CAPSULE PO SCH (09:07)
[2019-05-28] MEDS: THIAMINE HCL 100 MG TABLET PO SCH ×2 (09:07→16:25)
[2019-05-28] MEDS: ASENAPINE 5 MG SUBLINGUAL TABLET SL SCH ×2 (09:07→16:41)
[2019-05-28] MEDS: MULTIVITAMINS WITH MINERALS, THERAPEUTIC TABLET PO SCH (09:07)
[2019-05-28] MEDS: FOLIC ACID 1 MG TABLET PO SCH (09:07)
[2019-05-28] MEDS: LISINOPRIL 10 MG TABLET PO SCH (09:07)
[2019-05-28 11:13] LABS: GLUCOMETER DEV NAME(LOC) BV2S.; GLUCOSE,POINT OF CARE 211 MG/DL (70-110)
[2019-05-28 16:34] VITALS: BP 125/78
[2019-05-28 16:35] LABS: GLUCOMETER DEV NAME(LOC) BV2S.; GLUCOSE,POINT OF CARE 377 MG/DL (70-110)
[2019-05-28] MEDS: SIMVASTATIN 40 MG TABLET PO SCH (20:56)
[2019-05-28] MEDS: INSULIN GLARGINE,HUM.REC.ANLOG 100 UNITS/ML SQ SCH (21:01)
[2019-05-28 23:00] LABS: GLUCOMETER DEV NAME(LOC) BV2S.; GLUCOSE,POINT OF CARE 333 MG/DL (70-110)
[2019-05-29 00:06] VITALS: BP 122/72
[2019-05-29 02:20] LABS: GLUCOMETER DEV NAME(LOC) BV2S.; GLUCOSE,POINT OF CARE 238 MG/DL (70-110)
[2019-05-29] MEDS: LORazepam 2 MG TABLET PO PRN (03:24)
[2019-05-29] MEDS: INSULIN LISPRO 100 UNITS/ML SQ PRN ×4 (06:35→20:36)
[2019-05-29 06:38] LABS: GLUCOMETER DEV NAME(LOC) BV2S.; GLUCOSE,POINT OF CARE 122 MG/DL (70-110)
[2019-05-29] MEDS: FOLIC ACID 1 MG TABLET PO SCH (08:14)
[2019-05-29] MEDS: THIAMINE HCL 100 MG TABLET PO SCH ×2 (08:14→16:39)
[2019-05-29] MEDS: ASENAPINE 5 MG SUBLINGUAL TABLET SL SCH ×2 (08:14→16:42)
[2019-05-29] MEDS: CHOLECALCIFEROL (VIT D3) 5,000 [125 MCG] UNITS CAPSULE PO SCH (08:14)
[2019-05-29] MEDS: LISINOPRIL 10 MG TABLET PO SCH (08:14)
[2019-05-29] MEDS: MULTIVITAMINS WITH MINERALS, THERAPEUTIC TABLET PO SCH (08:14)
[2019-05-29] MEDS: DULoxetine HCL 20 MG CAPSULE PO SCH (08:19)
[2019-05-29] MEDS: NALTREXONE HCL 50 MG TABLET PO SCH (08:19)
[2019-05-29 08:22] VITALS: BP 114/69
[2019-05-29 11:08] LABS: GLUCOMETER DEV NAME(LOC) BV2S.; GLUCOSE,POINT OF CARE 195 MG/DL (70-110)
[2019-05-29 16:41] VITALS: BP 110/60
[2019-05-29 16:53] LABS: GLUCOMETER DEV NAME(LOC) BV2S.; GLUCOSE,POINT OF CARE 260 MG/DL (70-110)
[2019-05-29 20:41] LABS: GLUCOMETER DEV NAME(LOC) BV2S.; GLUCOSE,POINT OF CARE 302 MG/DL (70-110)
[2019-05-29] MEDS: INSULIN GLARGINE,HUM.REC.ANLOG 100 UNITS/ML SQ SCH (21:05)
[2019-05-29] MEDS: SIMVASTATIN 40 MG TABLET PO SCH (21:36)
[2019-05-30 00:36] VITALS: BP 133/75
[2019-05-30 06:06] LABS: GLUCOMETER DEV NAME(LOC) BV2S.; GLUCOSE,POINT OF CARE 73 MG/DL (70-110)
[2019-05-30 08:22] VITALS: BP 113/64
[2019-05-30] MEDS: CHOLECALCIFEROL (VIT D3) 5,000 [125 MCG] UNITS CAPSULE PO SCH (08:23)
[2019-05-30] MEDS: MULTIVITAMINS WITH MINERALS, THERAPEUTIC TABLET PO SCH (08:23)
[2019-05-30] MEDS: LISINOPRIL 10 MG TABLET PO SCH (08:23)
[2019-05-30] MEDS: THIAMINE HCL 100 MG TABLET PO SCH ×2 (08:23→16:47)
[2019-05-30] MEDS: ASENAPINE 10 MG SUBLINGUAL TABLET SL SCH ×2 (08:23→16:47)
[2019-05-30] MEDS: FOLIC ACID 1 MG TABLET PO SCH (08:23)
[2019-05-30] MEDS: NALTREXONE HCL 50 MG TABLET PO SCH (08:26)
[2019-05-30] MEDS ORDERED: BuPROPion HCL XL 150 MG ER TABLET PO SCH (09:00)
[2019-05-30] MEDS: INSULIN LISPRO 100 UNITS/ML SQ PRN ×3 (10:59→20:56)
[2019-05-30 11:14] LABS: GLUCOMETER DEV NAME(LOC) BV2S.; GLUCOSE,POINT OF CARE 214 MG/DL (70-110)
[2019-05-30 16:17] LABS: GLUCOMETER DEV NAME(LOC) BV2S.; GLUCOSE,POINT OF CARE 312 MG/DL (70-110)
[2019-05-30 16:21] VITALS: BP 109/66
[2019-05-30] MEDS: SIMVASTATIN 40 MG TABLET PO SCH (20:53)
[2019-05-30 21:20] LABS: GLUCOMETER DEV NAME(LOC) BV2S.; GLUCOSE,POINT OF CARE 377 MG/DL (70-110)
[2019-05-30 23:12] LABS: GLUCOMETER DEV NAME(LOC) BV2S.; GLUCOSE,POINT OF CARE 54 MG/DL (70-110)
[2019-05-30 23:12] LABS: GLUCOMETER DEV NAME(LOC) BV2S.; GLUCOSE,POINT OF CARE 106 MG/DL (70-110)
[2019-05-31 01:10] VITALS: BP 129/69
[2019-05-31] MEDS: ZOLPIDEM TARTRATE 10 MG TABLET PO PRN (02:19)
[2019-05-31 06:45] LABS: GLUCOMETER DEV NAME(LOC) BV2S.; GLUCOSE,POINT OF CARE 241 MG/DL (70-110)
[2019-05-31] MEDS: INSULIN LISPRO 100 UNITS/ML SQ PRN ×4 (06:46→20:17)
[2019-05-31] MEDS: CHOLECALCIFEROL (VIT D3) 5,000 [125 MCG] UNITS CAPSULE PO SCH (08:15)
[2019-05-31] MEDS: MULTIVITAMINS WITH MINERALS, THERAPEUTIC TABLET PO SCH (08:15)
[2019-05-31] MEDS: ASENAPINE 10 MG SUBLINGUAL TABLET SL SCH ×2 (08:15→16:06)
[2019-05-31] MEDS: THIAMINE HCL 100 MG TABLET PO SCH ×2 (08:15→16:06)
[2019-05-31] MEDS: FOLIC ACID 1 MG TABLET PO SCH (08:15)
[2019-05-31] MEDS: LISINOPRIL 10 MG TABLET PO SCH (08:15)
[2019-05-31 08:25] VITALS: BP 135/64
[2019-05-31] MEDS: BuPROPion HCL XL 150 MG ER TABLET PO SCH (08:25)
[2019-05-31] MEDS: NALTREXONE HCL 50 MG TABLET PO SCH (08:25)
[2019-05-31] MEDS: INSULIN GLARGINE,HUM.REC.ANLOG 100 UNITS/ML SQ SCH (08:28)
[2019-05-31 11:12] LABS: GLUCOMETER DEV NAME(LOC) BV2S.; GLUCOSE,POINT OF CARE 182 MG/DL (70-110)
[2019-05-31] MEDS ORDERED: BUPR-47 PO (15:15)
[2019-05-31] MEDS ORDERED: ASEN10TA8 SL (15:15)
[2019-05-31] MEDS ORDERED: NALT50TA PO (15:15)
[2019-05-31 16:24] LABS: GLUCOMETER DEV NAME(LOC) BV2S.; GLUCOSE,POINT OF CARE 256 MG/DL (70-110)
[2019-05-31 17:39] VITALS: BP 123/74
[2019-05-31] MEDS: SIMVASTATIN 40 MG TABLET PO SCH (20:08)
[2019-05-31 20:29] LABS: GLUCOMETER DEV NAME(LOC) BV2S.; GLUCOSE,POINT OF CARE 183 MG/DL (70-110)
[2019-05-31] MEDS: LORazepam 2 MG TABLET PO PRN (22:26)
[2019-06-01] MEDS: INSULIN LISPRO 100 UNITS/ML SQ PRN ×2 (06:34→11:06)
[2019-06-01 06:39] VITALS: BP 103/57
[2019-06-01 06:41] LABS: GLUCOMETER DEV NAME(LOC) BV2S.; GLUCOSE,POINT OF CARE 298 MG/DL (70-110)
[2019-06-01] MEDS: FOLIC ACID 1 MG TABLET PO SCH (08:11)
[2019-06-01] MEDS: ASENAPINE 10 MG SUBLINGUAL TABLET SL SCH (08:11)
[2019-06-01] MEDS: MULTIVITAMINS WITH MINERALS, THERAPEUTIC TABLET PO SCH (08:11)
[2019-06-01] MEDS: THIAMINE HCL 100 MG TABLET PO SCH (08:11)
[2019-06-01] MEDS: LISINOPRIL 10 MG TABLET PO SCH (08:11)
[2019-06-01] MEDS: CHOLECALCIFEROL (VIT D3) 5,000 [125 MCG] UNITS CAPSULE PO SCH (08:11)
[2019-06-01 08:14] VITALS: BP 106/62
[2019-06-01] MEDS: NALTREXONE HCL 50 MG TABLET PO SCH (08:14)
[2019-06-01] MEDS: BuPROPion HCL XL 150 MG ER TABLET PO SCH (08:14)
[2019-06-01] MEDS: INSULIN GLARGINE,HUM.REC.ANLOG 100 UNITS/ML SQ SCH (08:16)
[2019-06-01] MEDS ORDERED: BUPR100 PO (09:09)
[2019-06-01] MEDS ORDERED: INSLAN SQ (09:14)
[2019-06-01 12:04] LABS: GLUCOMETER DEV NAME(LOC) BV2S.; GLUCOSE,POINT OF CARE 159 MG/DL (70-110)
== END 2019-06-01 14:45 | disposition home or self-care (01) | DRG 750 ==
LOC: B2S 23:11
PROVIDERS: ADMIT Psychiatry & Neurology Psychiatry; ATTEND Psychiatry & Neurology Psychiatry
DX: F25.1 Schizoaffective disorder, depressive type (principal); E11.9 Type 2 diabetes mellitus without complications; F31.81 Bipolar II disorder; E78.5 Hyperlipidemia, unspecified; E87.6 Hypokalemia; I10 Essential (primary) hypertension; Z91.19 Patient's noncompliance with other medical treatment and regimen; Z83.3 Family history of diabetes mellitus; Z82.49 Family history of ischemic heart disease and other diseases of the circulatory system; Z82.3 Family history of stroke
CPT/HCPCS: 83036; 84439; 84443; 90686; J1815

== ENCOUNTER 2023-06-29 14:19 | Inpatient (IN) | payer MEDICAID ==
[~2023-06-29] VITALS: Ht 160 cm; Wt 85.7 kg
[~2023-06-29 14:19] MED LIST changes: +ASEN10TA14 SL; -ASEN5TAB6 SL; +BUPR-345 PO; +BUPR-49 PO; -DULO20CA30 PO; -NALT50TA PO; +NALT50TA6 PO; -SIMV40TA2 PO; +[UNRECOGNIZED DRUG - CODE] PO
[2023-06-29] MEDS ORDERED: HALOPERIDOL 5 MG TABLET PO PRN (15:30)
[2023-06-29 16:32] VITALS: BP 134/55; PULSE 82; RESP 18; TEMP 97.9; O2SAT 100
[2023-06-29 16:41] LABS: GLUCOMETER DEV NAME(LOC) POC.BV; POC SARS-COV2 AG, FIA NEGATIVE (NEGATIVE)
[2023-06-29] MEDS ORDERED: GLUCAGON,HUMAN RECOMBINANT 1 MG VIAL IM PRN (17:45)
[2023-06-29] MEDS: INSULIN LISPRO 100 UNITS/ML SQ PRN (18:14)
[2023-06-29 18:15] VITALS: BP 133/72; PULSE 72; RESP 14; TEMP 97.3
[2023-06-29] MEDS: LORazepam 2 MG TABLET PO PRN (18:28)
[2023-06-29 18:31] LABS: GLUCOMETER DEV NAME(LOC) BV3N.; GLUCOSE,POINT OF CARE 298 MG/DL (70-110)
[2023-06-29 20:33] VITALS: BP 122/72; PULSE 64; TEMP 97.7
[2023-06-29 20:36] VITALS: BP 122/67; PULSE 64; TEMP 97.7; O2SAT 97
[2023-06-29] MEDS: SIMVASTATIN 20 MG TABLET PO SCH (21:10)
[2023-06-29 22:46] LABS: GLUCOMETER DEV NAME(LOC) BV3N.; GLUCOSE,POINT OF CARE 302 MG/DL (70-110)
[2023-06-29] MEDS: ZOLPIDEM TARTRATE 10 MG TABLET PO PRN (23:26)
[2023-06-30] MEDS ORDERED: LOPERAMIDE HCL 2 MG CAPSULE PO PRN (06:00)
[2023-06-30] MEDS ORDERED: MAG HYDROX/ALUMINUM HYD/SIMETH ES 30 ML SUSPENSION UDCUP PO PRN (06:00)
[2023-06-30] MEDS ORDERED: ALBUTEROL SULFATE HFA 90 MCG/PUFF 8 GM INHALER IH PRN (06:00)
[2023-06-30] MEDS ORDERED: MAGNESIUM HYDROXIDE SUSPENSION 30 ML UDCUP PO PRN (06:00)
[2023-06-30] MEDS ORDERED: BENZOCAINE/MENTHOL LOZENGE PO PRN (06:00)
[2023-06-30] MEDS ORDERED: OMEPRAZOLE 20 MG CAPSULE PO PRN (06:00)
[2023-06-30] MEDS ORDERED: CloNIDine HCL 0.1 MG TABLET PO PRN (06:00)
[2023-06-30] MEDS ORDERED: ACETAMINOPHEN 325 MG TABLET PO PRN (06:00)
[2023-06-30] MEDS ORDERED: PETROLATUM,WHITE 28 GM JELLY TP PRN (06:00)
[2023-06-30] MEDS ORDERED: ONDANSETRON HCL 4 MG TABLET PO PRN (06:00)
[2023-06-30] MEDS ORDERED: BACITRACIN 28 GM OINTMENT TP PRN (06:00)
[2023-06-30] MEDS ORDERED: DOCUSATE SODIUM 100 MG CAPSULE PO PRN (06:00)
[2023-06-30 06:36] LABS: GLUCOMETER DEV NAME(LOC) BV3N.; GLUCOSE,POINT OF CARE 372 MG/DL (70-110)
[2023-06-30] MEDS: LISINOPRIL 10 MG TABLET PO SCH (08:19)
[2023-06-30] MEDS: NALTREXONE HCL 50 MG TABLET PO SCH (08:19)
[2023-06-30] MEDS: INSULIN GLARGINE,HUM.REC.ANLOG 100 UNITS/ML SQ SCH (08:23)
[2023-06-30 08:45] VITALS: BP 115/60; PULSE 77; RESP 18; TEMP 98.2; O2SAT 95
[2023-06-30 08:53] LABS: BASOPHILS % (AUTO) 0.7 % (0.0-2.0); EOSINOPHILS % (AUTO) 2.1 % (1.0-6.0); HEMATOCRIT 43.7 % (41-53); HEMOGLOBIN 14.7 g/dL (13.5-17.5); LYMPHOCYTES # (AUTO) 2.2 K/uL (1.0-4.8); LYMPHOCYTES % (AUTO) 23.7 % (22.0-44.0); MEAN CORPUSCULAR HEMOGLOBIN 30.2 pg (26.0-34.0); MEAN CORPUSCULAR HGB CONC 33.7 G/dL (31.0-37.0); MEAN CORPUSCULAR VOLUME 90 fL (80-100); MONOCYTES # (AUTO) 0.7 K/uL (0.1-1.0); NEUTROPHILS # (AUTO) 6.3 K/uL (1.8-7.7); NEUTROPHILS % (AUTO) 66.5 % (40.0-70.0); PLATELET COUNT (AUTO) 218 K/uL (150-450); RED BLOOD CELL COUNT(AUTO) 4.87 MIL/uL (4.50-5.90); RED CELL DISTRIBUTION WIDTH 12.5 % (11.5-14.5); WHITE BLOOD COUNT (AUTO) 9.5 K/uL (4.5-11.0)
[2023-06-30 09:27] LABS: ALANINE AMINOTRANSFERASE 22 U/L (12-78); ALBUMIN 3.3 g/dL (3.4-5.0); ALKALINE PHOSPHATASE 103 U/L (46-116); ANION GAP 8 mmol/L (8-16); ASPARTATE AMINOTRANSFERASE 14 U/L (15-37); BILIRUBIN,TOTAL 0.9 mg/dL (0.1-1.0); CALCIUM, TOTAL 8.3 mg/dL (8.8-10.5); CARBON DIOXIDE 26 mmol/L (22-29); CHLORIDE 99 mmol/L (98-107); CHOL/HDL RATIO 2.3 (4.2-7.3); CHOLESTEROL 158 mg/dL (131-200); CREATININE 0.98 mg/dL (0.60-1.30); FREE T4 (FREE THYROXINE) 0.96 ng/dL (0.76-1.46); GLOMERULAR FILTR. RATE CALC > 60 mL/min (>60); GLUCOSE,RANDOM 369 mg/dL (70-110); HDL CHOLESTEROL 68 mg/dL (40-60); LDL CHOL (CALC.) 68 mg/dL (0-130); SODIUM SERUM 133 mmol/L (136-145); T4 (THYROXINE) 7.5 mcg/dL (4.7-13.3); THYROID STIMULATING HORMONE 2.36 uIU/mL (0.36-3.74); TOTAL PROTEIN, SERUM 6.5 g/dL (6.4-8.2); TRIGLYCERIDES 112 mg/dL (15-150); UREA NITROGEN, BLOOD 14 mg/dL (7-18)
[2023-06-30 12:55] LABS: GLUCOMETER DEV NAME(LOC) BV3N.; GLUCOSE,POINT OF CARE 257 MG/DL (70-110)
[2023-06-30 17:10] LABS: GLUCOMETER DEV NAME(LOC) BV3N.; GLUCOSE,POINT OF CARE 274 MG/DL (70-110)
[2023-06-30 20:15] VITALS: BP 114/59; PULSE 73; RESP 18; TEMP 98.7; O2SAT 99
[2023-07-01 03:36] LABS: GLUCOMETER DEV NAME(LOC) BV3N.; GLUCOSE,POINT OF CARE 264 MG/DL (70-110)
[2023-07-01 06:36] LABS: GLUCOMETER DEV NAME(LOC) BV3N.; GLUCOSE,POINT OF CARE 293 MG/DL (70-110)
[2023-07-01 08:28] LABS: APPEARANCE,URINE CLEAR (CLEAR); BILIRUBIN,URINE NEGATIVE (NEGATIVE); COLOR,URINE COLORLESS (YELLOW); GLUCOSE, URINE (UA) >=1000 mg/dL (NEGATIVE); KETONES,URINE NEGATIVE (NEGATIVE); LEUKOCYTE ESTERASE ,URINE NEGATIVE (NEGATIVE); NITRATE,URINE NEGATIVE (NEGATIVE); OCCULT BLOOD,URINE NEGATIVE (NEGATIVE); PH,URINE 7.5 (5.0-8.0); PH,URINE DRUG SCREEN 7.5 (5.0-8.0); PROTEIN,URINE NEGATIVE (NEGATIVE); SPECIFIC GRAVITIY, URINE 1.005 (1.003-1.030); UROBILINOGEN,URINE <=1.0 mg/dL (<=1.0)
[2023-07-01 08:35] LABS: AMPHET/METH SCREEN,URINE NEGATIVE (NEGATIVE); BARBITURATE SCREEN, URINE NEGATIVE (NEGATIVE); BENZODIAZEPINES SCREEN,URINE NEGATIVE (NEGATIVE); CANNABINOID SCREEN,URINE NEGATIVE (NEGATIVE); COCAINE SCREEN,URINE NEGATIVE (NEGATIVE); METHADONE SCREEN, URINE NEGATIVE (NEGATIVE); OPIATE SCREEN,URINE NEGATIVE (NEGATIVE); PHENCYCLIDINE SCREEN,URINE NEGATIVE (NEGATIVE)
[2023-07-01 08:41] LABS: ALCOHOL, URINE DRUG SCREEN NEGATIVE (NEGATIVE)
[2023-07-01 09:00] VITALS: BP 107/67; PULSE 68; RESP 20; TEMP 98.3; O2SAT 98
[2023-07-01 09:31] LABS: BACTERIA,URINE None Seen /HPF (None Seen); RBC,URINE None Seen /HPF (0-2); WBC,URINE None Seen /HPF (0-5)
[2023-07-01 13:01] LABS: GLUCOMETER DEV NAME(LOC) BV3N.; GLUCOSE,POINT OF CARE 253 MG/DL (70-110)
[2023-07-01 16:40] LABS: GLUCOMETER DEV NAME(LOC) BV3N.; GLUCOSE,POINT OF CARE 277 MG/DL (70-110)
[2023-07-01 20:15] VITALS: BP 106/69; PULSE 76; RESP 18; TEMP 97.8; O2SAT 100
[2023-07-01 20:36] LABS: GLUCOMETER DEV NAME(LOC) BV3N.; GLUCOSE,POINT OF CARE 285 MG/DL (70-110)
[2023-07-02 06:55] LABS: GLUCOMETER DEV NAME(LOC) BV3N.; GLUCOSE,POINT OF CARE 305 MG/DL (70-110)
[2023-07-02 08:00] VITALS: BP 120/67; PULSE 64; RESP 17; TEMP 98; O2SAT 97
[2023-07-02 12:00] LABS: GLUCOMETER DEV NAME(LOC) BV3N.; GLUCOSE,POINT OF CARE 237 MG/DL (70-110)
[2023-07-02 14:41] VITALS: BP 135/79; PULSE 84; RESP 18; TEMP 98.2; O2SAT 99
[2023-07-02] MEDS: IBUPROFEN 600 MG TABLET PO PRN (18:40)
[2023-07-02 19:35] LABS: GLUCOMETER DEV NAME(LOC) BV3N.; GLUCOSE,POINT OF CARE 217 MG/DL (70-110)
[2023-07-02 20:43] VITALS: BP 125/65; PULSE 76; RESP 18; TEMP 98; O2SAT 100
[2023-07-02 20:55] LABS: GLUCOMETER DEV NAME(LOC) BV3N.; GLUCOSE,POINT OF CARE 320 MG/DL (70-110)
[2023-07-03 08:06] VITALS: BP 118/64; PULSE 72; RESP 18; TEMP 98; O2SAT 96
[2023-07-03] MEDS: RisperiDONE 1 MG TABLET PO SCH (13:08)
[2023-07-03 14:20] LABS: GLUCOMETER DEV NAME(LOC) BV3N.; GLUCOSE,POINT OF CARE 244 MG/DL (70-110)
[2023-07-03] MEDS ORDERED: RisperiDONE 1 MG TABLET PO SCH (17:00)
[2023-07-03 20:12] VITALS: BP 119/60; PULSE 70; RESP 18; TEMP 98.4
[2023-07-03 21:01] LABS: GLUCOMETER DEV NAME(LOC) BV3N.; GLUCOSE,POINT OF CARE 283 MG/DL (70-110)
[2023-07-03 21:01] LABS: GLUCOMETER DEV NAME(LOC) BV3N.; GLUCOSE,POINT OF CARE 278 MG/DL (70-110)
[2023-07-04 06:35] LABS: GLUCOMETER DEV NAME(LOC) BV3N.; GLUCOSE,POINT OF CARE 208 MG/DL (70-110)
[2023-07-04 08:43] VITALS: BP 119/65; PULSE 90; RESP 17; TEMP 98; O2SAT 96
== END 2023-07-04 10:40 | disposition home or self-care (01) | DRG 750 ==
LOC: B3A 15:32
PROVIDERS: ADMIT Psychiatry & Neurology Psychiatry; ATTEND Psychiatry & Neurology Psychiatry
DX: F25.9 Schizoaffective disorder, unspecified (principal); E11.65 Type 2 diabetes mellitus with hyperglycemia; Z20.822 Contact with and (suspected) exposure to COVID-19; K59.00 Constipation, unspecified; E78.5 Hyperlipidemia, unspecified; I10 Essential (primary) hypertension; G47.00 Insomnia, unspecified; K21.9 Gastro-esophageal reflux disease without esophagitis; F10.90 Alcohol use, unspecified, uncomplicated; F12.90 Cannabis use, unspecified, uncomplicated
CPT/HCPCS: 80053; 80061; 80307; 81001; 82962; 84436; 84439; 84443; 85025; 86592; J1815